=== PATIENT | female | born 1940 | race Caucasian/White ===

== ENCOUNTER → 2018-02-20 13:44 | Outpatient (CLI) | payer MEDICARE, SELFPAY ==
[2018-02-20 17:09] LABS: Absolute Neutrophil Count 3.3 X10^3/uL (2.0-7.7); Basophil# 0.03 X10^3/uL; Basophil% 0.6 % (0-1); Eosinophil# 0.09 X10^3/uL; Eosinophils% 1.8 % (0-5); Hematocrit 38.4 % (37-47); Hemoglobin 12.4 g/dl (12.0-15.0); Lymphocyte % 23.5 % (19-41); Mean Corp Hgb Conc 32.3 g/gl (32-36); Mean Corpuscular Hgb 28.6 pg (27.0-32.0); Mean Corpuscular Volume 88.7 fL (81-99); Mean Platelet Vol. 10.2 fl (6.2-12.0); Monocyte# 0.51 X10^3/uL; Neutrophil # 3.27 X10^3/uL (2.7-7.7); Neutrophil % 63.9 % (47-70); Platelet Count 235 K/mm3 (150-450); RBC Distribution Width SD 45.5 fl (35.1-43.9); Red Blood Count 4.33 M/mm3 (4.2-5.4); White Blood Count 5.1 K/mm3 (4.4-11.0)
[2018-02-20 17:25] LABS: ALB/GLOB Ratio 1.2 RATIO (0.9-2.4); AST(SGOT) 16 U/L (15-37); Alanine Aminotransfer ALT/SGPT 23 U/L (13-56); Albumin, Serum 3.7 g/dL (3.2-5.0); Alkaline Phosphatase 84 U/L (45-117); Anion Gap 4 (5-15); BUN 14 mg/dL (7-18); BUN/Creat Ratio 14.6 RATIO (10-20); Chloride 107 mmol/L (98-107); Creatinine, Serum 0.96 mg/dL (0.55-1.02); EST Glomerular Filtration Rate 60 mL/min (>60); Est Glom Filt Rate - Afr Amer 72 mL/min (>60); Globulin 3.2 g/dL (2.2-4.2); Glucose 75 mg/dL (74-106); Potassium 3.7 mmol/L (3.5-5.1); Protein, Total 6.9 g/dL (6.4-8.2); Sodium Level 140 mmol/L (136-145); Thyroid Stim Hormone (TSH) 1.62 uIU/mL (0.358-3.74)
[2018-02-20 17:26] LABS: POSITIVE COUNT NO; POSITIVE DIFFERENTIAL NO; POSITIVE MORPHOLOGY NO
[2018-02-21 08:39] LABS: Vitamin D,25 Hydroxy 22.4 ng/mL (29.95-100.01)
== END ==
PROVIDERS: Family Provider Family Medicine Geriatric Medicine; PCP Family Medicine Geriatric Medicine; Visit Provider Family Medicine Geriatric Medicine
DX: I10 Essential (primary) hypertension (principal); E55.9 Vitamin D deficiency, unspecified
CPT/HCPCS: 36415; 80053; 82306; 84443; 85025

== ENCOUNTER → 2018-08-15 09:39 | Outpatient (CLI) | payer MEDICARE, SELFPAY ==
[2018-08-15 12:33] LABS: Absolute Lymphocyte Count 1.23 X10^3/ul (0.83-4.51); Absolute Neutrophil Count 3.1 X10^3/uL (2.0-7.7); Basophil# 0.05 X10^3/uL; Eosinophil# 0.11 X10^3/uL; Eosinophils% 2.2 % (0-5); Hematocrit 40.7 % (37-47); Hemoglobin 13.1 g/dl (12.0-15.0); Lymphocyte # 1.23 X10^3/ul (4.0); Lymphocyte % 24.1 % (19-41); Mean Corp Hgb Conc 32.2 g/gl (32-36); Mean Corpuscular Hgb 28.7 pg (27.0-32.0); Mean Corpuscular Volume 89.3 fL (81-99); Mean Platelet Vol. 10.1 fl (6.2-12.0); Monocyte# 0.62 X10^3/uL; Monocyte% 12.1 % (0-10); Neutrophil # 3.09 X10^3/uL (2.7-7.7); Neutrophil % 60.4 % (47-70); Platelet Count 251 K/mm3 (150-450); RBC Distribution Width CV 13.9 % (11.6-14.6); RBC Distribution Width SD 45.5 fl (35.1-43.9); Red Blood Count 4.56 M/mm3 (4.2-5.4); White Blood Count 5.1 K/mm3 (4.4-11.0)
[2018-08-15 12:41] LABS: POSITIVE COUNT NO; POSITIVE DIFFERENTIAL NO; POSITIVE MORPHOLOGY NO
[2018-08-15 12:56] LABS: ALB/GLOB Ratio 1.1 RATIO (0.9-2.4); AST(SGOT) 14 U/L (15-37); Alanine Aminotransfer ALT/SGPT 19 U/L (13-56); Albumin, Serum 3.8 g/dL (3.2-5.0); Alkaline Phosphatase 94 U/L (45-117); Anion Gap 9 (5-15); BUN 17 mg/dL (7-18); BUN/Creat Ratio 16.7 RATIO (10-20); Calcium,Total 8.9 mg/dL (8.5-10.1); Chloride 105 mmol/L (98-107); Creatinine, Serum 1.02 mg/dL (0.55-1.02); EST Glomerular Filtration Rate 55 mL/min (>60); Est Glom Filt Rate - Afr Amer 67 mL/min (>60); Globulin 3.4 g/dL (2.2-4.2); Glucose 95 mg/dL (74-106); Potassium 4.5 mmol/L (3.5-5.1); Protein, Total 7.2 g/dL (6.4-8.2); Sodium Level 139 mmol/L (136-145); Thyroid Stim Hormone (TSH) 2.13 uIU/mL (0.358-3.74)
== END ==
PROVIDERS: Family Provider Family Medicine Geriatric Medicine; PCP Family Medicine Geriatric Medicine; Visit Provider Family Medicine Geriatric Medicine
DX: I10 Essential (primary) hypertension (principal); E55.9 Vitamin D deficiency, unspecified
CPT/HCPCS: 36415; 80053; 82306; 84443; 85025

== ENCOUNTER → 2019-02-11 08:53 | Outpatient (CLI) | payer MEDICARE, SELFPAY ==
[2019-02-11 12:33] LABS: Absolute Lymphocyte Count 1.27 X10^3/ul (0.83-4.51); Absolute Neutrophil Count 4.1 X10^3/uL (2.0-7.7); Basophil# 0.04 X10^3/uL; Basophil% 0.7 % (0-1); Eosinophils% 1.6 % (0-5); Hematocrit 40.4 % (37-47); Hemoglobin 13.4 g/dl (12.0-15.0); Lymphocyte # 1.27 X10^3/ul (4.0); Lymphocyte % 20.8 % (19-41); Mean Corp Hgb Conc 33.2 g/gl (32-36); Mean Corpuscular Hgb 28.9 pg (27.0-32.0); Mean Corpuscular Volume 87.3 fL (81-99); Mean Platelet Vol. 10.4 fl (6.2-12.0); Monocyte# 0.58 X10^3/uL; Monocyte% 9.5 % (0-10); Neutrophil % 67.1 % (47-70); Platelet Count 272 K/mm3 (150-450); RBC Distribution Width CV 14.2 % (11.6-14.6); RBC Distribution Width SD 44.6 fl (35.1-43.9); Red Blood Count 4.63 M/mm3 (4.2-5.4); White Blood Count 6.1 K/mm3 (4.4-11.0)
[2019-02-11 12:47] LABS: POSITIVE COUNT NO; POSITIVE DIFFERENTIAL NO; POSITIVE MORPHOLOGY NO
[2019-02-11 12:58] LABS: Vitamin D,25 Hydroxy 21.6 ng/mL (29.95-100.01)
[2019-02-11 13:06] LABS: ALB/GLOB Ratio 1.2 RATIO (0.9-2.4); AST(SGOT) 13 U/L (15-37); Alanine Aminotransfer ALT/SGPT 23 U/L (13-56); Alkaline Phosphatase 71 U/L (45-117); Anion Gap 12 (5-15); BUN 18 mg/dL (7-18); Chloride 104 mmol/L (98-107); EST Glomerular Filtration Rate 57 mL/min (>60); Est Glom Filt Rate - Afr Amer 68 mL/min (>60); Globulin 3.3 g/dL (2.2-4.2); Glucose 95 mg/dL (74-106); Potassium 4.1 mmol/L (3.5-5.1); Protein, Total 7.3 g/dL (6.4-8.2); Sodium Level 140 mmol/L (136-145); Thyroid Stim Hormone (TSH) 2.47 uIU/mL (0.358-3.74)
== END ==
PROVIDERS: Family Provider Family Medicine Geriatric Medicine; PCP Family Medicine Geriatric Medicine; Visit Provider Family Medicine Geriatric Medicine
DX: I10 Essential (primary) hypertension (principal); E55.9 Vitamin D deficiency, unspecified
CPT/HCPCS: 36415; 80053; 82306; 84443; 85025

== ENCOUNTER → 2019-08-16 08:34 | Outpatient (CLI) | payer MEDICARE, SELFPAY ==
[2019-08-16 11:44] LABS: Absolute Neutrophil Count 4.1 X10^3/uL (2.0-7.7); Basophil# 0.04 X10^3/uL; Basophil% 0.7 % (0-1); Eosinophil# 0.08 X10^3/uL; Eosinophils% 1.4 % (0-5); Hematocrit 40.9 % (37-47); Hemoglobin 13.1 g/dL (12.0-15.0); Lymphocyte % 14.1 % (19-41); Mean Corpuscular Hgb 29.3 pg (27.0-32.0); Mean Corpuscular Volume 91.5 fL (81-99); Mean Platelet Vol. 10.3 fl (6.2-12.0); Monocyte# 0.63 X10^3/uL; Monocyte% 11.1 % (0-10); NRBC Flagged by Analyzer 0 % (0-5); Neutrophil % 72.2 % (47-70); Platelet Count 257 K/mm3 (150-450); RBC Distribution Width CV 13.9 % (11.6-14.6); RBC Distribution Width SD 46.8 fl (35.1-43.9); Red Blood Count 4.47 M/mm3 (4.2-5.4); White Blood Count 5.7 K/mm3 (4.4-11.0)
[2019-08-16 12:00] LABS: Vitamin D,25 Hydroxy 16.4 ng/mL (29.95-100.01)
[2019-08-16 12:10] LABS: ALB/GLOB Ratio 1.1 RATIO (0.9-2.4); AST(SGOT) 12 U/L (15-37); Alanine Aminotransfer ALT/SGPT 20 U/L (13-56); Albumin, Serum 3.8 g/dL (3.2-5.0); Alkaline Phosphatase 99 U/L (45-117); Anion Gap 7 (5-15); BUN 15 mg/dL (7-18); BUN/Creat Ratio 14.4 RATIO (10-20); Calcium,Total 9.4 mg/dL (8.5-10.1); Chloride 107 mmol/L (98-107); Creatinine, Serum 1.04 mg/dL (0.55-1.02); EST Glomerular Filtration Rate 54 mL/min (>60); Est Glom Filt Rate - Afr Amer 65 mL/min (>60); Globulin 3.4 g/dL (2.2-4.2); Glucose 89 mg/dL (74-106); Potassium 4.2 mmol/L (3.5-5.1); Protein, Total 7.2 g/dL (6.4-8.2); Sodium Level 139 mmol/L (136-145); Thyroid Stim Hormone (TSH) 2.57 uIU/mL (0.358-3.74)
== END ==
PROVIDERS: Family Provider Family Medicine Geriatric Medicine; PCP Family Medicine Geriatric Medicine; Visit Provider Family Medicine Geriatric Medicine
DX: I10 Essential (primary) hypertension (principal); E55.9 Vitamin D deficiency, unspecified
CPT/HCPCS: 36415; 80053; 82306; 84443; 85025

== ENCOUNTER → 2020-02-14 09:35 | Outpatient (CLI) | payer MEDICARE, SELFPAY ==
[2020-02-14 11:04] LABS: Absolute Lymphocyte Count 1.02 X10^3/uL (0.83-4.51); Absolute Neutrophil Count 3.2 X10^3/uL (2.0-7.7); Basophil# 0.05 X10^3/uL; Eosinophil# 0.16 X10^3/uL; Eosinophils% 3.2 % (0-5); Hematocrit 40.1 % (37-47); Hemoglobin 12.6 g/dL (12.0-15.0); Lymphocyte # 1.02 X10^3/ul (4.0); Lymphocyte % 20.3 % (19-41); Mean Corp Hgb Conc 31.4 g/dL (32-36); Mean Corpuscular Hgb 28.3 pg (27.0-32.0); Mean Corpuscular Volume 90.1 fL (81-99); Mean Platelet Vol. 10.2 fl (6.2-12.0); Monocyte# 0.56 X10^3/uL; Monocyte% 11.2 % (0-10); NRBC Flagged by Analyzer 0 % (0-5); Neutrophil % 63.7 % (47-70); Platelet Count 290 K/mm3 (150-450); RBC Distribution Width CV 13.9 % (11.6-14.6); RBC Distribution Width SD 45.9 fl (35.1-43.9); Red Blood Count 4.45 M/mm3 (4.2-5.4)
[2020-02-14 11:18] LABS: Vitamin D,25 Hydroxy 21.5 ng/mL
[2020-02-14 11:29] LABS: ALB/GLOB Ratio 1.1 RATIO (0.9-2.4); AST(SGOT) 12 U/L (15-37); Alanine Aminotransfer ALT/SGPT 19 U/L (13-56); Albumin, Serum 3.8 g/dL (3.2-5.0); Alkaline Phosphatase 89 U/L (45-117); Anion Gap 5 (5-15); BUN 24 mg/dL (7-18); BUN/Creat Ratio 21.6 RATIO (10-20); Calcium,Total 9.6 mg/dL (8.5-10.1); Chloride 106 mmol/L (98-107); Creatinine, Serum 1.11 mg/dL (0.55-1.02); EST Glomerular Filtration Rate 50 mL/min (>60); Est Glom Filt Rate - Afr Amer 61 mL/min (>60); Globulin 3.4 g/dL (2.2-4.2); Glucose 92 mg/dL (74-106); Potassium 4.6 mmol/L (3.5-5.1); Protein, Total 7.2 g/dL (6.4-8.2); Sodium Level 138 mmol/L (136-145); Thyroid Stim Hormone (TSH) 2.27 uIU/mL (0.358-3.74)
== END ==
PROVIDERS: PCP Family Medicine Geriatric Medicine; Visit Provider Family Medicine Geriatric Medicine
DX: I10 Essential (primary) hypertension (principal); E55.9 Vitamin D deficiency, unspecified
CPT/HCPCS: 36415; 80053; 82306; 84443; 85025

== ENCOUNTER → 2020-08-17 09:50 | Outpatient (CLI) | payer MEDICARE, SELFPAY ==
[2020-08-17 11:31] LABS: Absolute Lymphocyte Count 1.28 X10^3/uL (0.83-4.51); Absolute Neutrophil Count 3.2 X10^3/uL (2.0-7.7); Basophil# 0.05 X10^3/uL; Eosinophils% 1.9 % (0-5); Hematocrit 39.1 % (37-47); Hemoglobin 12.6 g/dL (12.0-15.0); Lymphocyte # 1.28 X10^3/ul (4.0); Lymphocyte % 24.4 % (19-41); Mean Corp Hgb Conc 32.2 g/dL (32-36); Mean Corpuscular Hgb 28.8 pg (27.0-32.0); Mean Corpuscular Volume 89.5 fL (81-99); Mean Platelet Vol. 10.4 fl (6.2-12.0); Monocyte# 0.64 X10^3/uL; Monocyte% 12.2 % (0-10); NRBC Flagged by Analyzer 0 % (0-5); Neutrophil # 3.15 X10^3/uL (2.7-7.7); Neutrophil % 59.9 % (47-70); Platelet Count 275 K/mm3 (150-450); RBC Distribution Width CV 13.7 % (11.6-14.6); RBC Distribution Width SD 44.9 fl (35.1-43.9); Red Blood Count 4.37 M/mm3 (4.2-5.4); White Blood Count 5.3 K/mm3 (4.4-11.0)
[2020-08-17 11:47] LABS: Vitamin D,25 Hydroxy 21.4 ng/mL
[2020-08-17 12:00] LABS: AST(SGOT) 7 U/L (15-37); Alanine Aminotransfer ALT/SGPT 16 U/L (13-56); Albumin, Serum 3.6 g/dL (3.2-5.0); Alkaline Phosphatase 94 U/L (45-117); Anion Gap 5 (5-15); BUN 22 mg/dL (7-18); BUN/Creat Ratio 22.1 RATIO (10-20); Calcium,Total 9.8 mg/dL (8.5-10.1); Chloride 106 mmol/L (98-107); EST Glomerular Filtration Rate 57 mL/min (>60); Est Glom Filt Rate - Afr Amer 69 mL/min (>60); Globulin 3.7 g/dL (2.2-4.2); Glucose 95 mg/dL (74-106); Potassium 4.5 mmol/L (3.5-5.1); Protein, Total 7.3 g/dL (6.4-8.2); Sodium Level 138 mmol/L (136-145); Thyroid Stim Hormone (TSH) 3.23 uIU/mL (0.358-3.74)
== END ==
PROVIDERS: PCP Family Medicine Geriatric Medicine; Visit Provider Family Medicine Geriatric Medicine
DX: I10 Essential (primary) hypertension (principal); E55.9 Vitamin D deficiency, unspecified
CPT/HCPCS: 36415; 80053; 82306; 84443; 85025

== ENCOUNTER → 2021-02-22 11:29 | Outpatient (CLI) | payer MEDICARE, SELFPAY ==
[2021-02-22 12:00] LABS: Absolute Lymphocyte Count 1.15 X10^3/uL (0.83-4.51); Absolute Neutrophil Count 3.5 X10^3/uL (2.0-7.7); Basophil# 0.07 X10^3/uL; Basophil% 1.3 % (0-1); Eosinophil# 0.09 X10^3/uL; Eosinophils% 1.7 % (0-5); Hematocrit 38.9 % (37-47); Hemoglobin 12.5 g/dL (12.0-15.0); Lymphocyte # 1.15 X10^3/ul (0.83-4.51); Lymphocyte % 21.5 % (19-41); Mean Corp Hgb Conc 32.1 g/dL (32-36); Mean Corpuscular Hgb 28.3 pg (27.0-32.0); Mean Platelet Vol. 10.1 fl (6.2-12.0); Monocyte# 0.55 X10^3/uL; Monocyte% 10.3 % (0-10); NRBC Flagged by Analyzer 0 % (0-5); Neutrophil # 3.46 X10^3/uL (2.7-7.7); Neutrophil % 64.8 % (47-70); Platelet Count 276 K/mm3 (150-450); RBC Distribution Width CV 14.2 % (11.6-14.6); RBC Distribution Width SD 45.3 fl (35.1-43.9); Red Blood Count 4.42 M/mm3 (4.2-5.4); White Blood Count 5.3 K/mm3 (4.4-11.0)
[2021-02-22 12:36] LABS: Vitamin D,25 Hydroxy 35.4 ng/mL
[2021-02-22 12:56] LABS: ALB/GLOB Ratio 1.2 RATIO (0.9-2.4); AST(SGOT) 12 U/L (15-37); Alanine Aminotransfer ALT/SGPT 15 U/L (13-56); Albumin, Serum 3.8 g/dL (3.2-5.0); Alkaline Phosphatase 95 U/L (45-117); Anion Gap 8 (5-15); BUN 20 mg/dL (7-18); BUN/Creat Ratio 20.2 RATIO (10-20); Calcium,Total 9.3 mg/dL (8.5-10.1); Chloride 106 mmol/L (98-107); Creatinine, Serum 0.99 mg/dL (0.55-1.02); EST Glomerular Filtration Rate 57 mL/min (>60); Est Glom Filt Rate - Afr Amer 69 mL/min (>60); Globulin 3.2 g/dL (2.2-4.2); Glucose 116 mg/dL (74-106); Potassium 4.1 mmol/L (3.5-5.1); Sodium Level 139 mmol/L (136-145); Thyroid Stim Hormone (TSH) 2.17 uIU/mL (0.358-3.74)
== END ==
PROVIDERS: PCP Family Medicine Geriatric Medicine; Visit Provider Family Medicine Geriatric Medicine
DX: I10 Essential (primary) hypertension (principal); E55.9 Vitamin D deficiency, unspecified
CPT/HCPCS: 36415; 80053; 82306; 84443; 85025

== ENCOUNTER 2021-06-25 13:38 | Emergency (ER) | payer MEDICARE, SELFPAY ==
[2021-06-25 13:40] VITALS: BP 154/74; PULSE 81; RESP 24; TEMP 36.8; O2SAT 97; BMI 23.8
--- NOTE | 2021-06-25 15:05 | ED.VIS.GI ---
HPI HPI - GI History of Present Illness Chief Complaint: Abd Pain Narrative Narrative: 81-year-old female presenting with left lower quadrant abdominal pain. Patient states that this started about 3 days ago but is gradually built over the course of that time. but states she does not have jose eduardo dysuria. She denies Patient admits to some urinary dribbling hematuria. this morning. Patient also complains of diarrhea She does not have nausea or vomiting. She was able to eat breakfast today. Patient's past surgical history in her abdomen includes a hernia repair several years ago by Dr. Wilcox. Patient denies having a fever. Patient has no history of kidney stones or diverticulitis. [facility] PFS Medical History History of bleeding ulcers HTN (hypertension) Hypothyroid Home Medications levothyroxine [Euthyrox] 25 mcg PO QHS 06/25/21 [History Last Taken Unknown] lisinopril 40 mg PO DAILY 06/25/21 [History Last Taken Unknown] sulfamethoxazole-trimethoprim [Bactrim DS] 1 tab PO Q12H #20 tab 06/25/21 [Rx Last Taken Unknown] Allergy/AdvReac Type Severity Reaction Status Date / Time No Known Allergies Allergy Verified 06/25/21 13:40 Surgical History History of hernia repair Social History Smoking Status: Never smoker ROS ROS ED Constitutional Constitutional ED: Denies chills or fever(s) ENT ENT ED: Denies rhinorrhea or sore throat Cardiovascular Cardiovascular: Denies chest pain or palpitations Respiratory/Chest Respiratory/Chest: Denies cough, dyspnea or sputum Gastrointestinal Gastrointestinal: Reports abdominal pain and diarrhea Genitourinary Genitourinary ED: Reports other Details: Urinary dribbling ; Denies dysuria or hematuria Musculoskeletal Musculoskeletal: Denies arthralgias or myalgias Integumentary Denies rash Neurologic Neurologic: Denies headache(s), paresthesias or weakness EXAM Physical Exam Const Vital Signs: 06/25/21 13:40 06/25/21 17:00 Temperature 98.2 F Temperature Source Temporal Pulse Rate 81 80 Respiratory Rate 24 H 16 Blood Pressure 154/74 H 152/74 H Blood Pressure Mean 100 100 Pulse Ox 97 97 Oxygen Delivery Method Room Air Room Air Positive well nourished General Appearance ED: NAD; Negative for pallor HEENT Reports moist mucous membranes normocephalic and atraumatic Eyes PERRL and EOMs intact bilaterally General Eye ED: Negative for pale conjunctiva or scleral icterus Resp normal respiratory effort and clear to auscultation bilaterally Cardio regular rate and regular rhythm GI Palpation: soft and tender LLQ Back/Spine General Back: CVA tenderness left Neuro Sensorium / Orientation: alert, oriented to person, oriented to place and oriented to time Skin General Skin Exam: Negative for jaundice or pallor MDM MDM MDM Narrative Medical decision making narrative: Patient presented with left CVA tenderness and left lower quadrant abdominal pain. She had no history of kidney stones. She does admit to dribbling of urine but denies dysuria. She has not had any systemic signs or symptoms. He is given morphine and Zofran on arrival. I did obtain a urinalysis which is positive for infection. Culture was sent. CBC and CMP are unremarkable. Patient's pain is now controlled. I will start her on antibiotics for pyelonephritis given the CVA tenderness although the CT the abdomen pelvis shows no perinephric stranding. Patient is given return precautions. Impression: 1. Left pyelonephritis Lab Data Attestation: I reviewed the patient's lab results. Labs: Laboratory Results - last 24 hr 06/25/21 06/25/21 06/25/21 14:20 14:20 16:15 WBC 5.4 RBC 4.53 Hgb 12.9 Hct 37.9 MCV 83.7 MCH 28.5 MCHC 34.0 RDW Std Deviation 40.6 RDW Coeff of Maria D 13.2 Plt Count 312 MPV 9.9 Immature Gran % (Auto) 0.700 Neut % (Auto) 72.6 H Lymph % (Auto) 17.3 L [place] % (Auto) 8.3 Eos % (Auto) 0.2 Baso % (Auto) 0.9 Absolute Neuts (auto) 3.9 Absolute Lymphs (auto) 0.94 Nucleated RBC % 0 Sodium 133 L Potassium 4.2 Chloride 103 Carbon Dioxide 21.0 Anion Gap 9 BUN 18 Creatinine 0.95 Estim Creat Clear Calc 40.38 Est GFR (MDRD) Af Amer 72 Est GFR (MDRD) Non-Af 59 L BUN/Creatinine Ratio 18.9 Glucose 121 H Calcium 9.8 Total Bilirubin 1.20 H AST 14 L ALT 14 Alkaline Phosphatase 103 Total Protein 7.2 Albumin 3.8 Globulin 3.4 Albumin/Globulin Ratio 1.1 Lipase 111 Urine Color Yellow Urine Clarity Clear Urine pH 8.0 Ur Specific [place] 1.010 Urine Protein Negative Urine Glucose (UA) Normal Urine Ketones 50 H Urine Occult Blood 10 H Urine Nitrite Positive H Urine Bilirubin Negative Urine Urobilinogen Normal Ur Leukocyte Esterase 25 H Urine RBC 0-5 SEEN Urine WBC 0-5 SEEN Ur Squamous Epith Cells 0 SEEN Urine Bacteria 2+ Urine Mucus 0 SEEN Radiography Diagnostic Testing: Clinical Impression(s) from Imaging Studies Abdomen/Pelvis CT 06/25/21 16:52 IMPRESSION: 1. No acute abnormality. 2. Chronic compression fractures of T10 and L1. 3. 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 Electronically Signed: Tk Simpson MD at 17:36 EDT Tel , Service support , Discharge Plan Triage Chief Complaint: Abd Pain Other Complaint: Complaint ED Provider: Kareem Wiley Dx/Rx/DC Orders Instructions: ED Pyelonephritis, Female (Adult) Prescriptions: New sulfamethoxazole-trimethoprim [Bactrim DS] 800-160 mg tablet 1 tab PO Q12H Qty: 20 RF: 0 No Action levothyroxine [Euthyrox] 25 mcg tablet 25 mcg PO QHS RF: 0 lisinopril 40 mg tablet 40 mg PO DAILY RF: 0 Primary Care Provider: Darryl Coleman Chi Referrals: Darryl Coleman Chi, MD [Primary Care Provider] - Disposition Disposition: Home, Self Care
[2021-06-25] MEDS: 0.9% Normal Saline 1,000 ML 999 ML IV (15:14)
[2021-06-25] MEDS: Morphine 4 MG/ML Syringe IV (15:15)
[2021-06-25] MEDS: Ondansetron 4 MG/2 ML Vial IV (15:15)
[2021-06-25 15:26] LABS: ALB/GLOB Ratio 1.1 RATIO (0.9-2.4); AST(SGOT) 14 U/L (15-37); Alanine Aminotransfer ALT/SGPT 14 U/L (13-56); Albumin, Serum 3.8 g/dL (3.2-5.0); Alkaline Phosphatase 103 U/L (45-117); Anion Gap 9 (5-15); BUN 18 mg/dL (7-18); BUN/Creat Ratio 18.9 RATIO (10-20); Calcium,Total 9.8 mg/dL (8.5-10.1); Chloride 103 mmol/L (98-107); Creatinine, Serum 0.95 mg/dL (0.55-1.02); EST Glomerular Filtration Rate 59 mL/min (>60); Est Glom Filt Rate - Afr Amer 72 mL/min (>60); Estimated Creatinine Clearance 40.38 ml/min; Globulin 3.4 g/dL (2.2-4.2); Glucose 121 mg/dL (74-106); Lipase 111 U/L (73-393); Potassium 4.2 mmol/L (3.5-5.1); Protein, Total 7.2 g/dL (6.4-8.2); Sodium Level 133 mmol/L (136-145)
[2021-06-25 15:34] LABS: Absolute Lymphocyte Count 0.94 X10^3/uL (0.83-4.51); Absolute Neutrophil Count 3.9 X10^3/uL (2.0-7.7); Basophil# 0.05 X10^3/uL; Basophil% 0.9 % (0-1); Eosinophil# 0.01 X10^3/uL; Eosinophils% 0.2 % (0-5); Hematocrit 37.9 % (37-47); Hemoglobin 12.9 g/dL (12.0-15.0); Lymphocyte # 0.94 X10^3/ul (0.83-4.51); Lymphocyte % 17.3 % (19-41); Mean Corpuscular Hgb 28.5 pg (27.0-32.0); Mean Corpuscular Volume 83.7 fL (81-99); Mean Platelet Vol. 9.9 fl (6.2-12.0); Monocyte# 0.45 X10^3/uL; Monocyte% 8.3 % (0-10); NRBC Flagged by Analyzer 0 % (0-5); Neutrophil # 3.93 X10^3/uL (2.7-7.7); Neutrophil % 72.6 % (47-70); Platelet Count 312 K/mm3 (150-450); RBC Distribution Width CV 13.2 % (11.6-14.6); RBC Distribution Width SD 40.6 fl (35.1-43.9); Red Blood Count 4.53 M/mm3 (4.2-5.4); White Blood Count 5.4 K/mm3 (4.4-11.0)
[2021-06-25 16:22] LABS: Mucous, Urine 0 SEEN /hpf (<or=2+); Squamous Epithelial Cells - UA 0 SEEN /hpf (5-10)
[2021-06-25 16:26] LABS: Color, Urine Yellow (Yellow); Glucose, Dipstick Normal (Normal); Ketone-Dipstick 50 mg/dl (Negative); Leukocyte Esterase-Dipstick 25 /ul (Negative); Nitrite-Dipstick Positive (Negative); Occult Blood-Urine 10 /ul (Negative); Protein-Dipstick Negative (Negative); Urine Bilirubin Dipstick Negative (Negative); Urine Clarity Clear (Clear); Urine Urobilinogen Normal (Normal)
[2021-06-25 16:46] LABS: Bacteria 2+ /hpf (None Seen); Red Blood Cells-Urine 0-5 SEEN /hpf (0-5); White Blood Cells 0-5 SEEN /hpf (0-5)
--- NOTE | 2021-06-25 16:52 | CT_ITS ---
STUDY: CT ABDOMEN AND PELVIS WITHOUT CONTRAST REASON FOR EXAM: Female, 81 years old. Left flank pain RADIATION DOSAGE (If Supplied By Facility): CTDIvol = ( 6.37 ) mGy, DLP = ( 286.47 ) mGycm TECHNIQUE: Transaxial images were obtained from the dome of the diaphragm to the symphysis pubis without oral contrast, and without intravenous contrast. Sagittal and coronal images were reconstructed. Individualized dose optimization techniques were used for this CT. COMPARISON: 29 April 2013 FINDINGS: Lung bases are emphysematous with mild atelectasis. There is a moderate-sized hiatal hernia. Normal liver. Normal gallbladder and extrahepatic biliary system. Normal spleen. Normal pancreas. Normal bilateral adrenal glands. Normal right kidney. Normal left kidney. There are no urinary calculi or hydronephrosis. There is no intestinal obstruction. There is sigmoid diverticulosis without diverticulitis. Appendix is not seen. Normal abdominal aorta. Normal inferior vena cava. Normal retroperitoneum. Normal urinary bladder. Uterus is removed. Normal abdominal wall. There is left lower quadrant hernia repair without recurrence. Inguinal canals are closed. There is chronic compression fracture of L1 with anterior wedging deformity and mild posterior superior cortical retropulsion. There is chronic compression fracture of T10 with anterior wedging deformity without cortical retropulsion. Thecal sac is moderately to severely stenotic at L3-L4 due to discogenic spondylosis. Thecal sac is patent at other levels. CT/Abdomen/Pelvis without Cont IMPRESSION: 1. No acute abnormality. 2. Chronic compression fractures of T10 and L1. 3. 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 Electronically Signed: Tk Simpson MD at 17:36 EDT Tel , Service support ,
[2021-06-25 17:00] VITALS: BP 152/74; PULSE 80; RESP 16; O2SAT 97
[2021-06-25] MEDS: Smz/Tmp Ds Tablet 1 TABLET PO (18:00)
[2021-06-25 18:04] VITALS: PULSE 76; RESP 16; O2SAT 97
== END 2021-06-25 18:05 | disposition home or self-care (01) ==
PROVIDERS: Emergency Provider Student in an Organized Health Care Education/Training Program; PCP Family Medicine Geriatric Medicine
DX: N12 Tubulo-interstitial nephritis, not specified as acute or chronic (principal); R19.7 Diarrhea, unspecified; I10 Essential (primary) hypertension; E03.9 Hypothyroidism, unspecified; Z79.890 Hormone replacement therapy; Z79.899 Other long term (current) drug therapy
CPT/HCPCS: 74176; 80053; 81001; 83690; 85025; 87077; 87086; 87088; 87186; 96374; 96375; 99284; J7030; A4216; J2405

== ENCOUNTER → 2021-08-23 11:19 | Outpatient (CLI) | payer MEDICARE, SELFPAY ==
[2021-08-23 12:37] LABS: Absolute Lymphocyte Count 1.08 X10^3/uL (0.83-4.51); Absolute Neutrophil Count 3.2 X10^3/uL (2.0-7.7); Basophil# 0.07 X10^3/uL; Basophil% 1.4 % (0-1); Eosinophil# 0.09 X10^3/uL; Eosinophils% 1.8 % (0-5); Hematocrit 39.2 % (37-47); Hemoglobin 12.6 g/dL (12.0-15.0); Lymphocyte # 1.08 X10^3/ul (0.83-4.51); Lymphocyte % 21.9 % (19-41); Mean Corp Hgb Conc 32.1 g/dL (32-36); Mean Corpuscular Volume 90.1 fL (81-99); Mean Platelet Vol. 10.2 fl (6.2-12.0); Monocyte# 0.51 X10^3/uL; Monocyte% 10.3 % (0-10); NRBC Flagged by Analyzer 0 % (0-5); Neutrophil # 3.17 X10^3/uL (2.7-7.7); Neutrophil % 64.2 % (47-70); Platelet Count 275 K/mm3 (150-450); RBC Distribution Width CV 14.4 % (11.6-14.6); RBC Distribution Width SD 47.8 fl (35.1-43.9); Red Blood Count 4.35 M/mm3 (4.2-5.4); White Blood Count 4.9 K/mm3 (4.4-11.0)
[2021-08-23 12:54] LABS: Vitamin D,25 Hydroxy 27.3 ng/mL
[2021-08-23 12:59] LABS: ALB/GLOB Ratio 1.1 RATIO (0.9-2.4); AST(SGOT) 11 U/L (15-37); Alanine Aminotransfer ALT/SGPT 19 U/L (13-56); Albumin, Serum 3.7 g/dL (3.2-5.0); Alkaline Phosphatase 88 U/L (45-117); Anion Gap 6 (5-15); BUN 18 mg/dL (7-18); Calcium,Total 9.6 mg/dL (8.5-10.1); Chloride 108 mmol/L (98-107); EST Glomerular Filtration Rate 63 mL/min (>60); Est Glom Filt Rate - Afr Amer 77 mL/min (>60); Globulin 3.4 g/dL (2.2-4.2); Glucose 102 mg/dL (74-106); Potassium 4.2 mmol/L (3.5-5.1); Protein, Total 7.1 g/dL (6.4-8.2); Sodium Level 139 mmol/L (136-145); Thyroid Stim Hormone (TSH) 2.63 uIU/mL (0.358-3.74)
== END ==
PROVIDERS: PCP Family Medicine Geriatric Medicine; Visit Provider Family Medicine Geriatric Medicine
DX: I10 Essential (primary) hypertension (principal); E55.9 Vitamin D deficiency, unspecified
CPT/HCPCS: 36415; 80053; 82306; 84443; 85025

== ENCOUNTER → 2022-02-21 | Outpatient (CLI) | payer MEDICARE, SELFPAY ==
[2022-02-21 12:43] LABS: Absolute Lymphocyte Count 1.09 X10^3/uL (0.83-4.51); Absolute Neutrophil Count 3.7 X10^3/uL (2.0-7.7); Basophil# 0.07 X10^3/uL; Basophil% 1.3 % (0-1); Eosinophil# 0.12 X10^3/uL; Eosinophils% 2.2 % (0-5); Hematocrit 38.4 % (37-47); Hemoglobin 12.4 g/dL (12.0-15.0); Lymphocyte # 1.09 X10^3/ul (0.83-4.51); Lymphocyte % 19.6 % (19-41); Mean Corp Hgb Conc 32.3 g/dL (32-36); Mean Corpuscular Volume 89.9 fL (81-99); Mean Platelet Vol. 10.1 fl (6.2-12.0); Monocyte# 0.57 X10^3/uL; Monocyte% 10.3 % (0-10); NRBC Flagged by Analyzer 0 % (0-5); Neutrophil # 3.67 X10^3/uL (2.7-7.7); Neutrophil % 66.1 % (47-70); Platelet Count 252 K/mm3 (150-450); RBC Distribution Width CV 13.9 % (11.6-14.6); RBC Distribution Width SD 45.9 fl (35.1-43.9); Red Blood Count 4.27 M/mm3 (4.2-5.4); White Blood Count 5.6 K/mm3 (4.4-11.0)
[2022-02-21 12:49] LABS: Vitamin D,25 Hydroxy 30.2 ng/mL
[2022-02-21 12:56] LABS: ALB/GLOB Ratio 1.1 RATIO (0.9-2.4); AST(SGOT) 11 U/L (15-37); Alanine Aminotransfer ALT/SGPT 17 U/L (13-56); Albumin, Serum 3.6 g/dL (3.2-5.0); Alkaline Phosphatase 84 U/L (45-117); Anion Gap 4 (5-15); BUN 20 mg/dL (7-18); BUN/Creat Ratio 19.2 RATIO (10-20); Calcium,Total 9.4 mg/dL (8.5-10.1); Chloride 107 mmol/L (98-107); Creatinine, Serum 1.04 mg/dL (0.55-1.02); EST Glomerular Filtration Rate 54 mL/min (>60); Est Glom Filt Rate - Afr Amer 65 mL/min (>60); Globulin 3.2 g/dL (2.2-4.2); Glucose 95 mg/dL (74-106); Potassium 4.3 mmol/L (3.5-5.1); Protein, Total 6.8 g/dL (6.4-8.2); Sodium Level 138 mmol/L (136-145); Thyroid Stim Hormone (TSH) 2.13 uIU/mL (0.358-3.74)
== END | disposition home or self-care (01) ==
LOC: POLAB3 10:34
PROVIDERS: PCP Family Medicine Geriatric Medicine; Visit Provider Family Medicine Geriatric Medicine
DX: I10 Essential (primary) hypertension (principal); E55.9 Vitamin D deficiency, unspecified
CPT/HCPCS: 36415; 80053; 82306; 84443; 85025

== ENCOUNTER → 2022-08-22 | Outpatient (CLI) | payer MEDICARE, SELFPAY ==
[2022-08-22 12:46] LABS: Absolute Lymphocyte Count 0.97 X10^3/uL (0.83-4.51); Absolute Neutrophil Count 3.8 X10^3/uL (2.0-7.7); Basophil# 0.07 X10^3/uL; Basophil% 1.3 % (0-1); Eosinophil# 0.07 X10^3/uL; Eosinophils% 1.3 % (0-5); Hematocrit 40.5 % (37-47); Hemoglobin 13.1 g/dL (12.0-15.0); Lymphocyte # 0.97 X10^3/ul (0.83-4.51); Lymphocyte % 17.8 % (19-41); Mean Corp Hgb Conc 32.3 g/dL (32-36); Mean Corpuscular Hgb 29.2 pg (27.0-32.0); Mean Corpuscular Volume 90.2 fL (81-99); Mean Platelet Vol. 10.5 fl (6.2-12.0); Monocyte# 0.52 X10^3/uL; Monocyte% 9.5 % (0-10); NRBC Flagged by Analyzer 0.4 % (0-5); Neutrophil % 69.7 % (47-70); Platelet Count 276 K/mm3 (150-450); RBC Distribution Width CV 13.8 % (11.6-14.6); Red Blood Count 4.49 M/mm3 (4.2-5.4); White Blood Count 5.5 K/mm3 (4.4-11.0)
[2022-08-22 13:00] LABS: Vitamin D,25 Hydroxy 32.8 ng/mL
[2022-08-22 13:37] LABS: ALB/GLOB Ratio 1.2 RATIO (0.9-2.4); AST(SGOT) 10 U/L (15-37); Alanine Aminotransfer ALT/SGPT 17 U/L (13-56); Albumin, Serum 3.8 g/dL (3.2-5.0); Alkaline Phosphatase 82 U/L (45-117); Anion Gap 8 (5-15); BUN 20 mg/dL (7-18); BUN/Creat Ratio 21.3 RATIO (10-20); Calcium,Total 9.6 mg/dL (8.5-10.1); Chloride 106 mmol/L (98-107); Creatinine, Serum 0.94 mg/dL (0.55-1.02); EST Glomerular Filtration Rate 60 mL/min (>60); Est Glom Filt Rate - Afr Amer 73 mL/min (>60); Globulin 3.2 g/dL (2.2-4.2); Glucose 96 mg/dL (74-106); Potassium 4.1 mmol/L (3.5-5.1); Sodium Level 138 mmol/L (136-145)
== END | disposition home or self-care (01) ==
PROVIDERS: PCP Family Medicine Geriatric Medicine; Visit Provider Family Medicine Geriatric Medicine
DX: E55.9 Vitamin D deficiency, unspecified (principal); I10 Essential (primary) hypertension
CPT/HCPCS: 36415; 80053; 82306; 84443; 85025

== ENCOUNTER → 2022-09-28 | Outpatient (CLI) | payer MEDICARE, SELFPAY ==
--- NOTE | 2022-09-28 15:39 | NEURO ---
NCS and/or EMG Patient Report Ordering Doctor: Darryl Coleman Chi DATE OF SERVICE: 09/28/22 Marilin presents for electrodiagnostic testing of the right upper limb. She reports numbness and weakness in the right hand, worse over the past 6 months. Electrodiagnostic findings: Right median motor nerve demonstrates prolonged distal latency with normal amplitude and borderline reduced conduction velocity. Normal right ulnar motor response. Absent right median sensory latency at the wrist and palm. Normal ulnar and radial sensory responses. On needle EMG, all muscles tested in the right upper limb showed no evidence of denervation with normal motor unit action potentials. Electrodiagnostic impression: This is an abnormal study in the right upper limb 1. Electrodiagnostic findings suggestive of right-sided median mononeuropathy. This consistent with a moderate right carpal tunnel syndrome.
== END | disposition home or self-care (01) ==
PROVIDERS: PCP Family Medicine Geriatric Medicine; Visit Provider Family Medicine Geriatric Medicine
DX: G56.01 Carpal tunnel syndrome, right upper limb (principal)
CPT/HCPCS: 95886; 95910

== ENCOUNTER → 2023-02-14 | Outpatient (CLI) | payer MEDICARE, SELFPAY ==
[2023-02-14 12:18] LABS: Absolute Neutrophil Count 3.5 X10^3/uL (2.0-7.7); Basophil# 0.08 X10^3/uL; Basophil% 1.5 % (0-1); Eosinophil# 0.08 X10^3/uL; Eosinophils% 1.5 % (0-5); Hematocrit 43.6 % (37-47); Hemoglobin 13.8 g/dL (12.0-15.0); Lymphocyte % 20.9 % (19-41); Mean Corp Hgb Conc 31.7 g/dL (32-36); Mean Corpuscular Hgb 28.8 pg (27.0-32.0); Mean Corpuscular Volume 90.8 fL (81-99); Mean Platelet Vol. 9.8 fl (6.2-12.0); Monocyte# 0.48 X10^3/uL; Monocyte% 9.1 % (0-10); NRBC Flagged by Analyzer 0 % (0-5); Neutrophil # 3.49 X10^3/uL (2.7-7.7); Neutrophil % 66.4 % (47-70); Platelet Count 268 K/mm3 (150-450); RBC Distribution Width CV 13.8 % (11.6-14.6); RBC Distribution Width SD 46.3 fl (35.1-43.9); White Blood Count 5.3 K/mm3 (4.4-11.0)
[2023-02-14 12:53] LABS: Vitamin D,25 Hydroxy 53.9 ng/mL
[2023-02-14 13:07] LABS: ALB/GLOB Ratio 1.2 RATIO (0.9-2.4); AST(SGOT) 8 U/L (15-37); Alanine Aminotransfer ALT/SGPT 14 U/L (13-56); Albumin, Serum 3.9 g/dL (3.2-5.0); Alkaline Phosphatase 94 U/L (45-117); Anion Gap 7 (5-15); BUN 14 mg/dL (7-18); BUN/Creat Ratio 17.3 RATIO (10-20); Calcium,Total 9.9 mg/dL (8.5-10.1); Chloride 106 mmol/L (98-107); Creatinine, Serum 0.81 mg/dL (0.55-1.02); EST Glomerular Filtration Rate 71 mL/min (>60); Est Glom Filt Rate - Afr Amer 86 mL/min (>60); Globulin 3.3 g/dL (2.2-4.2); Glucose 104 mg/dL (74-106); Potassium 4.3 mmol/L (3.5-5.1); Protein, Total 7.2 g/dL (6.4-8.2); Sodium Level 138 mmol/L (136-145); Thyroid Stim Hormone (TSH) 3.27 uIU/mL (0.358-3.74)
== END | disposition home or self-care (01) ==
LOC: LAB 11:32
PROVIDERS: PCP Family Medicine Geriatric Medicine; Referring Provider Family Medicine Geriatric Medicine; Visit Provider Family Medicine Geriatric Medicine
DX: I10 Essential (primary) hypertension (principal); E55.9 Vitamin D deficiency, unspecified
CPT/HCPCS: 36415; 80053; 82306; 84443; 85025

== ENCOUNTER 2023-03-08 08:09 | Day surgery (SDC) | payer MEDICARE, SELFPAY ==
[2023-03-08] VITALS (10 sets, daily range): BP systolic 107–160; BP diastolic 51–76; PULSE 42–68; RESP 16–18; TEMP 36.3–36.7; O2SAT 97–100; BMI 22.7
[2023-03-08] MEDS: Lactated Ringers 1,000 ML 15 ML IV (08:42)
--- NOTE | 2023-03-08 09:17 | HP.PCM_ITS ---
HPI - General HPI Narrative MARILIN OLIVIER, is a 83 F who presents for right ECTR. no changes to h and p. OK to proceed. RAB discussed, post op pain medications tylenol or nsaids. FU in office 2 days. Right wrist marked. MR#: [id number] Acct: [id number] Name: MARILIN OLIVIER Rep #: [id number] : 1940 Provider: Dr. Bismark Guerrero MD Age/Sex: 82/F Location: [facility] [place] Status: Signed Intake Vital Signs 06/25/2113:40 02/20/2309:24 Height 5 ft 5 in 5 ft 5 in Weight: 142 lb BMI 23.6 Intake Visit Reasons: RIGHT HAND Chief Complaint: Right hand Is patient in pain?: Yes (Right hand) Pain scale (1-10): 6 Allergies No Known Allergies Allergy (Verified 02/20/23 09:22) Medications levothyroxine 25 mcg tablet (Euthyrox) 25 mcg PO QHS 06/25/21 [History Confirmed 02/20/23] lisinopril 40 mg tablet 40 mg PO DAILY 06/25/21 [History Confirmed 02/20/23] multivitamin 1 tab PO DAILY 02/20/23 [History Confirmed 02/20/23] PFSH Medical History (Updated 02/20/23 @ 09:28 by Bismark Guerrero MD) History of bleeding ulcers HTN (hypertension) Hypothyroid Right carpal tunnel syndrome Surgical History History of hernia repair Social History Smoking Status: Never smoker HPI RIGHT HAND Details: Parts of this documentation were recorded by a scribe, this documentation accurately reflects the service provided and the decisions made by me, Dr. Bismark Guerrero MD 02/20/23 0920. MARILIN OLIVIER is a 82 year old F here today for right carpal tunnel syndrome. right side, worse over time, can't do knitting, or weeding, mostly the ring finger goes numb, rhd. for a year. no night splinting or nsaids. interested in surgery. no hx medical beyond thyroid and htn. no blood thinners, mi or stroke. Ortho Exam General General: Yes no acute distress Neurologic: Yes alert and Yes oriented x3 Psychologic: Yes reasonable and appropriate Right Wrist/Hand Skin/Wound: Yes CDI, No Swelling, No Ecchymosis and Yes nail intact Right Wrist: Yes Phalen's and Thenar Atrophy; No Tinel's, Tender to palpate triangular fibrocartilage complex, Distal radioulnar joint, CMC Grind or Hypothenar Atrophy Motor: EPL: 4, FDP-2: 4, 1st Dorsal Interosseous: 4 and APB: 4 Sensation: Radial: I, Ulnar: I and Median: I WRIST: pos compression test at wrist, neg tinel and comp at elbow. Left Wrist/Hand Skin/Wound: No Swelling and No Ecchymosis Supplemental Info [facility]monary Services/Neurology [address] [place] [address] MR#:? [id number] Acct: [id number] Name: MARILIN OLIVIER Rep #: [id number] :? 1940 ?82 From: Francesca Carrion MD Referring Dr: ? ? Status:? REG CLI Location:? PSN Date:? 09/28/22 Sex: F C NCS and/or EMG Patient Report Ordering Doctor: Darryl Coleman Chi DATE OF SERVICE: 09/28/22 Marilin presents for electrodiagnostic testing of the right upper limb.? She reports numbness and weakness in the right hand, worse over the past 6 months. Electrodiagnostic findings: Right median motor nerve demonstrates prolonged distal latency with normal amplitude and borderline reduced conduction velocity. ? Normal right ulnar motor response.? Absent right median sensory latency at the wrist and palm.? Normal ulnar and radial sensory responses.? On needle EMG, all muscles tested in the right upper limb showed no evidence of denervation with normal motor unit action potentials. Electrodiagnostic impression: This is an abnormal study in the right upper limb 1.? Electrodiagnostic findings suggestive of right-sided median mononeuropathy.? This consistent with a moderate right carpal tunnel syndrome. Coding Level of Care Code Off vis,new,level 3 Diagnoses Right carpal tunnel syndrome G56.01 Assessment and Plan Assessment and Plan (1) Right carpal tunnel syndrome: Status: Acute Plan: 82 F with right carpal tunnel syndrome. We discussed the diagnosis prognosis and different treatment options associated with carpal tunnel syndrome. Can try rest ice anti-inflammatories activity modification and nighttime splinting cortisone injections and endoscopic or open carpal tunnel release. Patient is not interested in nonoperative management and wishes to go ahead with surgery in the form of right endoscopic carpal tunnel release. They are otherwise healthy but we will get a clearance just given their age. Explained the recovery associated with this 2 weeks avoiding heavy lifting and gripping keeping the incision clean and dry. Patient understands no further questions or concerns. Pros and cons risks and benefits were discussed with the patient including but not limited to infection, pain, stiffness, bleeding, damage to surrounding structures, neurovascular injury, recurrence or retear, failure or wear of hardware or fixation, instability, fracture, deep vein thrombosis and pulmonary embolism, anesthetic risks, , patient dissatisfaction, need for further surgery and other risks. Patient understood and wished to proceed with surgery, and signed the informed consent documentation. [facility] Medical History (Updated 02/28/23 @ 13:19 by Hailey Bermudez) High cholesterol History of bleeding ulcers History of ulceration HTN (hypertension) Hx of bladder infections Hypothyroid Non-smoker Post-menopausal Right carpal tunnel syndrome Thyroid disease Wears dentures Wears glasses Home Medications levothyroxine 25 mcg tablet (Euthyrox) 25 mcg PO QHS 06/25/21 [History Last Taken Unknown] lisinopril 40 mg tablet 40 mg PO DAILY 06/25/21 [History Last Taken 03/08/23 08:34] multivitamin 1 tab PO DAILY 02/20/23 [History Last Taken Unknown] Allergy/AdvReac Type Severity Reaction Status Date / Time No Known Allergies Allergy Verified 03/08/23 08:34 Surgical History (Updated 02/28/23 @ 13:19 by Hailey Bermudez) History of hernia repair Social History Smoking Status: Never smoker Vital Signs Vital Signs Vital Signs: 03/08/23 08:35 03/08/23 08:35 Temperature 98.1 F Temperature Source Temporal Pulse Rate 68 Respiratory Rate 18 Respiratory Pattern Normal Blood Pressure 160/76 H Blood Pressure Mean 104 Blood Pressure Source Monitor Blood Pressure Position Sitting Blood Pressure Location Left Arm Pulse Ox 100 Oxygen Delivery Method Room Air Weight Weight: 136 lb 10.986 oz Body Mass Index (BMI) 22.7
[2023-03-08] MEDS: Cefazolin 2 GM in 0.9% Normal Saline 100 ML IV (09:43)
[2023-03-08] MEDS: Bupivacaine 0.25% 30 ML Vial (10:01)
--- NOTE | 2023-03-08 10:14 | OP.PCM_ITS ---
Problems Associated Problem List Diagnoses (1) Right carpal tunnel syndrome: Report of Operation Date of Procedure: 03/08/23 Pre-Operative Diagnosis: right carpal tunnel syndrome Post-Operative Diagnosis: same Surgery/Procedure Performed:: right endoscopic carpal tunnel release Surgeon: Bismark Guerrero Type of Anesthesia: IV Sedation and Local Anesthesiologist: Corky Mir Estimated Blood Loss (mL): 10 Description of Procedure: Patient was brought to the operating room theater.? The patient was administered 2g iv ancef prior to the start of the procedure.? Placed supine on the operating room table.? Anesthesia induced.? SCDs on the legs.? Tourniquet applied to the right upper operative extremity, appropriately padded. Arm table used. Operative extremity prepped and draped in the usual sterile fashion with chlorhexidine- based prep solution allowing over 3 minutes drying time prior to draping.? Preoperative timeout performed to confirm the site patient and the surgery. Limb limb elevated tourniquet inflated to 250 mmHg.? I used the [facility] endoscopic carpal tunnel kit / technique. Exsanguinated limb. 4cc 0.25% bupivicaine at incision site. ? I made a transverse 2 cm incision in line with the? transverse wrist crease.? This was in line with the fourth digit.? I carried the dissection down through skin and subcutaneous tissue achieved meticulous hemostasis. Just ulnar to palmaris tendon.? I incised the antebrachial fascia.? I passed sequential dilators into the carpal tunnel along the radial border of the Guyon's canal aiming for the fourth digit with the hand in extension.? I used a synovial elevator to identify the transverse fibers of the transverse carpal tunnel ligament.? Passed the scope into the carpal tunnel. Once I had identified the full proximal and distal extent of the ligament I fully released the ligament under direct visualization by deploying the blade and slowly withdrawing the scope made sequential passes until I no longer felt tension as well as the entire extent of the ligament was released under direct visualization.? Sounded the tunnel with harvey tenotomy scissors, complete release, no bands. Arthroscope light was more visible through the skin. Pictures taken and saved. Wound thoroughly irrigated.? Tourniquet let down prior to end of the case and meticulous hemostasis achieved.? Thorough irrigation.? ? Incisions closed with 3-0 Monocryl for the skin.? Steri-Strips were applied after the skin was cleaned and dried. adaptic 4x4 gauze and zo. Patient woken up,? transferred off the operating room table and taken to postanesthetic care unit in stable condition. All sponge needle instrument counts were correct no complications.? Plan for the patient to be discharged home according to day surgery criteria when they are comfortable. Follow-up in the office in 2 days time. Gentle ROM hand and elbow no heavy lifting. Complications none Admit VTE Documentation VTE Present on Admission: No VTE Mechan Device Prophylaxis: SCD's VTE Pharm Prophylaxis ordered?: No Reason prophylaxis not ordered:: Treatment Not Indicated Procedures Musculoskeletal [id number]: Other Procedure See Report
--- NOTE | 2023-03-08 10:16 | DCINST_ITS ---
Discharge Instructions Diet Discharge Diet: No restrictions Activity Keep extremity elevated above heart level: Operative Extremity Additional Activity Instructions:: ok for hand / wrist ROM, no heavy lifting or gripping Dressing / Incision Call your doctor if your incision/area has: Continuous Slow Oozing, Sudden Increased Bleeding, Increased Pain/ Swelling, Increased Redness, Foul Smelling Discharge and Swelling at the incision site Change Dressing in: leave in place till F/U Follow Up Care Please Follow Up With: Bismark Guerrero MD When: 2 days Test Results: Test results from this visit will be discussed in further detail at your follow- up appointment, if applicable. Discharge Plan Admission Attending Provider: Bismark Guerrero Primary Care Provider: Darryl Coleman Chi Discharge Orders/Prescriptions Prescriptions: No Action multivitamin Tablet 1 tab PO DAILY levothyroxine [Euthyrox] 25 mcg tablet 25 mcg PO QHS lisinopril 40 mg tablet 40 mg PO DAILY Referrals / Follow Up: Darryl Coleman Chi, MD [Primary Care Provider] - Bismark Guerrero MD [Med Staff - Active Staff] - Disposition Disposition (needs filled in before D/C Order can be placed): Home, Self Care
== END 2023-03-08 11:39 | disposition home or self-care (01) ==
LOC: SDC 08:11 → AC 08:12
PROVIDERS: PCP Family Medicine Geriatric Medicine; Referring Provider Orthopaedic Surgery Sports Medicine; Visit Provider Orthopaedic Surgery Sports Medicine
PROC: (CPT 29848; principal; 2023-03-08 09:50)
DX: G56.01 Carpal tunnel syndrome, right upper limb (principal); I10 Essential (primary) hypertension; E03.9 Hypothyroidism, unspecified; Z79.899 Other long term (current) drug therapy
CPT/HCPCS: 29848; 01810; J7120; J2405

== ENCOUNTER → 2023-08-29 | Outpatient (CLI) | payer MEDICARE, SELFPAY ==
[2023-08-29 11:33] LABS: Absolute Lymphocyte Count 0.97 X10^3/uL (0.83-4.51); Absolute Neutrophil Count 3.4 X10^3/uL (2.0-7.7); Basophil# 0.08 X10^3/uL; Basophil% 1.5 % (0-1); Eosinophils% 1.9 % (0-5); Hematocrit 38.5 % (37-47); Hemoglobin 12.4 g/dL (12.0-15.0); Lymphocyte # 0.97 X10^3/ul (0.83-4.51); Lymphocyte % 18.7 % (19-41); Mean Corp Hgb Conc 32.2 g/dL (32-36); Mean Corpuscular Hgb 29.8 pg (27.0-32.0); Mean Corpuscular Volume 92.5 fL (81-99); Mean Platelet Vol. 9.7 fl (6.2-12.0); Monocyte# 0.59 X10^3/uL; Monocyte% 11.4 % (0-10); NRBC Flagged by Analyzer 0 % (0-5); Neutrophil # 3.41 X10^3/uL (2.7-7.7); Neutrophil % 65.9 % (47-70); Platelet Count 326 K/mm3 (150-450); RBC Distribution Width CV 13.9 % (11.6-14.6); RBC Distribution Width SD 47.3 fl (35.1-43.9); Red Blood Count 4.16 M/mm3 (4.2-5.4); White Blood Count 5.2 K/mm3 (4.4-11.0)
[2023-08-29 11:46] LABS: Vitamin D,25 Hydroxy 79.5 ng/mL
[2023-08-29 11:55] LABS: ALB/GLOB Ratio 1.4 RATIO (0.9-2.4); AST(SGOT) 12 U/L (15-37); Alanine Aminotransfer ALT/SGPT 13 U/L (13-56); Alkaline Phosphatase 66 U/L (45-117); Anion Gap 6 (5-15); BUN 17 mg/dL (7-18); BUN/Creat Ratio 19.3 RATIO (10-20); Calcium,Total 9.4 mg/dL (8.5-10.1); Chloride 105 mmol/L (98-107); Creatinine, Serum 0.88 mg/dL (0.55-1.02); EST Glomerular Filtration Rate 65 mL/min (>60); Est Glom Filt Rate - Afr Amer 78 mL/min (>60); Globulin 2.9 g/dL (2.2-4.2); Glucose 98 mg/dL (74-106); Potassium 4.5 mmol/L (3.5-5.1); Protein, Total 6.9 g/dL (6.4-8.2); Sodium Level 138 mmol/L (136-145)
== END | disposition home or self-care (01) ==
LOC: POLAB3 10:27
PROVIDERS: PCP Family Medicine Geriatric Medicine; Visit Provider Family Medicine Geriatric Medicine
DX: I10 Essential (primary) hypertension (principal); E55.9 Vitamin D deficiency, unspecified
CPT/HCPCS: 36415; 80053; 82306; 84443; 85025

== ENCOUNTER → 2024-02-28 | Outpatient (CLI) | payer MEDICARE, SELFPAY ==
--- NOTE | 2024-02-28 11:34 | RAD_ITS ---
EXAM: XR LUMBOSACRAL SPINE, 4 OR 5 VIEWS CLINICAL INDICATION: SCIATICA R TECHNIQUE: Frontal, lateral and bilateral oblique views of the lumbar spine. COMPARISON: Lumbar spine radiographs, 06/28/2024; CT abdomen and pelvis, 06/25/2021. FINDINGS: VERTEBRAE: L1 compression fracture with mild retropulsion of the posterior cortex similar in appearance to the prior CT examination. Multilevel facet arthrosis and endplate osteophytosis. T10 compression deformity is similar to the prior CT examination. Compression deformity of L3 partially assessed would be new compared to the prior CT examination. [place] right thoracolumbar curvature. No spondylolisthesis. DISC SPACES: Multilevel intervertebral disc height loss. GASTROINTESTINAL TRACT: Moderate colonic stool and gas. Included bowel gas pattern is non-obstructive. RAD/L/S Spine Min 4 Views IMPRESSION: 1. Compression deformity of L3 partially assessed would be new compared to the prior CT examination. Consider follow-up MRI or CT. 2. L1 compression fracture with mild retropulsion of the posterior cortex similar in appearance to the prior CT examination. 3. T10 compression deformity is similar to the prior CT examination. 4. [place]ley right thoracolumbar curvature. Electronically Signed: Jamie Mcgraw DO at 21:29 EDT ,
[2024-02-28 11:58] LABS: Absolute Lymphocyte Count 1.06 X10^3/uL (0.83-4.51); Absolute Neutrophil Count 3.2 X10^3/uL (2.0-7.7); Basophil# 0.09 X10^3/uL; Basophil% 1.8 % (0-1); Eosinophil# 0.06 X10^3/uL; Eosinophils% 1.2 % (0-5); Hematocrit 39.4 % (37-47); Hemoglobin 12.8 g/dL (12.0-15.0); Lymphocyte # 1.06 X10^3/ul (0.83-4.51); Mean Corp Hgb Conc 32.5 g/dL (32-36); Mean Corpuscular Hgb 28.7 pg (27.0-32.0); Mean Corpuscular Volume 88.3 fL (81-99); Mean Platelet Vol. 9.8 fl (6.2-12.0); Monocyte# 0.56 X10^3/uL; Monocyte% 11.1 % (0-10); NRBC Flagged by Analyzer 0 % (0-5); Neutrophil # 3.23 X10^3/uL (2.7-7.7); Neutrophil % 63.9 % (47-70); Platelet Count 337 K/mm3 (150-450); RBC Distribution Width CV 15.1 % (11.6-14.6); RBC Distribution Width SD 48.8 fl (35.1-43.9); Red Blood Count 4.46 M/mm3 (4.2-5.4); White Blood Count 5.1 K/mm3 (4.4-11.0)
[2024-02-28 12:25] LABS: Vitamin D,25 Hydroxy 46.9 ng/mL
[2024-02-28 12:32] LABS: ALB/GLOB Ratio 1.3 RATIO (0.9-2.4); AST(SGOT) 12 U/L (15-37); Alanine Aminotransfer ALT/SGPT 14 U/L (13-56); Alkaline Phosphatase 80 U/L (45-117); Anion Gap 3 (5-15); BUN 19 mg/dL (7-18); Calcium,Total 10.1 mg/dL (8.5-10.1); Chloride 108 mmol/L (98-107); Creatinine, Serum 0.86 mg/dL (0.55-1.02); EST Glomerular Filtration Rate 66 mL/min (>60); Est Glom Filt Rate - Afr Amer 80 mL/min (>60); Globulin 3.1 g/dL (2.2-4.2); Glucose 105 mg/dL (74-106); Potassium 4.2 mmol/L (3.5-5.1); Protein, Total 7.1 g/dL (6.4-8.2); Sodium Level 136 mmol/L (136-145); Thyroid Stim Hormone (TSH) 3.15 uIU/mL (0.358-3.74)
== END | disposition home or self-care (01) ==
PROVIDERS: PCP Family Medicine Geriatric Medicine; Referring Provider Family Medicine Geriatric Medicine; Visit Provider Family Medicine Geriatric Medicine
DX: I10 Essential (primary) hypertension (principal); E55.9 Vitamin D deficiency, unspecified
CPT/HCPCS: 36415; 72110; 80053; 82306; 84443; 85025

== ENCOUNTER → 2024-03-25 | Outpatient (CLI) | payer MEDICARE, SELFPAY ==
--- NOTE | 2024-03-25 09:30 | MRI_ITS ---
EXAM: MR LUMBAR SPINE WITHOUT INTRAVENOUS CONTRAST CLINICAL INDICATION: LUMBAR RADICULOPATHY, COMPRESSION FX OF L3 VERTEBRA TECHNIQUE: Multiplanar and multisequence MR images of the lumbar spine without intravenous contrast. COMPARISON: CT abdomen and pelvis, 06/25/2021 and lumbar spine radiographs, 02/28/2024. FINDINGS: VERTEBRAE: Chronic L1 compression fracture correlating with the prior CT examination. Minimal edema at the posterior superior corner of the vertebral body. Mild retropulsion of the posterior cortex and mild associated spinal canal stenosis. Multilevel facet arthrosis and endplate osteophytosis. No spondylolysis. Grade 1 degenerative anterolisthesis of L2 upon L3 secondary to cirrhosis. L2 is mildly subsided into the superior endplate of L3. Partially visualized degenerative changes throughout the cervical and thoracic spine. Chronic appearing T10 compression fracture. Mild compression deformity of L3. The superior endplate with less than 25% vertebral body height loss. No significant retropulsion of the posterior cortex and no involvement of the posterior elements. No significant edema to suggest that this is an acute injury. SPINAL CORD: No significant abnormality. Normal position and signal intensity of the conus medullaris. SOFT TISSUES: There is atrophic change of the erector spinae muscles. Atrophy of the right psoas muscle is also present. KIDNEYS AND URETERS: There is a right renal cyst for which no follow-up is indicated. DISCS/SPINAL CANAL/NEURAL FORAMINA: T12-L1: Mild retropulsion of the posterior cortex of L1. Facet arthrosis. Disc bulge. Mild to moderate spinal canal stenosis and moderate bilateral neural foraminal narrowing. L1-L2: Disc bulge and mild retropulsion of the posterior cortex of L1. Mild bilateral facet arthrosis. Mild spinal canal stenosis and moderate bilateral neural foraminal narrowing. L2-L3: Severe spinal canal stenosis. Anterolisthesis of L2 on L3. Disc bulge/pseudobulge with superimposed left central to foraminal disc herniation and severe bilateral facet arthrosis. Effacement of CSF from the thecal sac with impingement of the intrathecal nerve roots. The nerve roots are disorganized above the disc level within the thecal sac. There is impingement of the bilateral traversing L3 nerve roots and there is impingement of the left foraminal L2 nerve root. L3-L4: Disc bulge with superimposed right central disc herniation. Moderate facet arthrosis. Moderate right and mild left neural foraminal narrowing. Moderate to severe spinal canal stenosis. Right L3 and right L4 nerve root impingement. L4-L5: Disc bulge with superimposed central disc herniation and moderate bilateral facet arthrosis. Mild bilateral neural foraminal narrowing and mild spinal canal stenosis. Abutment without definite impingement of the bilateral L5 nerve roots. L5-S1: Disc bulge and mild bilateral arthrosis. Right foraminal to extraforaminal disc herniation. Mild to moderate right neural foraminal narrowing and mild spinal canal stenosis. No distinct evidence of nerve root impingement. OTHER FINDINGS: Partially visualized large hiatal hernia. MRI/Spine Lumbar (Routine) IMPRESSION: 1. Chronic L1 compression fracture correlating with the prior CT examination. Minimal edema at the posterior superior corner of the vertebral body. Mild retropulsion of the posterior cortex and mild associated spinal canal stenosis. 2. Multilevel degenerative changes in the spine worse at L2-L3 where there is severe spinal canal stenosis with impingement of the intrathecal nerve roots. Furthermore, impingement of the left L2, bilateral, and right L4 nerve roots. 3. Grade 1 degenerative anterolisthesis of L2 upon L3 secondary to cirrhosis. L2 is mildly subsided into the superior endplate of L3. 4. Partially visualized large hiatal hernia. 5. Partially visualized degenerative changes throughout the cervical and thoracic spine. Chronic appearing T10 compression fracture. 6. Chronic fracture at the superior endplate of L3, new since the prior CT examination. RECOMMENDATIONS: Spine surgery consultation. Electronically Signed: Jamie Mcgraw DO at 11:54 EDT ,
== END | disposition home or self-care (01) ==
PROVIDERS: PCP Family Medicine Geriatric Medicine; Referring Provider Family Medicine Geriatric Medicine; Visit Provider Family Medicine Geriatric Medicine
DX: S32.030A Wedge compression fracture of third lumbar vertebra, initial encounter for closed fracture (principal); M54.16 Radiculopathy, lumbar region
CPT/HCPCS: 72148

== ENCOUNTER → 2024-04-17 | Outpatient (CLI) | payer MEDICARE, SELFPAY ==
--- NOTE | 2024-04-17 08:13 | BD_ITS ---
STUDY: DUAL ENERGY X-RAY ABSORPTIOMETRY / DXA REASON FOR EXAM: Female, 84 years old. [id number] TECHNIQUE: Bone Mineral Density (BMD) measurements of lumbar spine and bilateral hips were obtained. COMPARISON: Comparison is made with prior study dated September 10, 2013. FINDINGS: Lumbar Spine (L1-L4): g/cm2 (0.756) / T-score (-2.6) / Z-score (0.2) Findings are suggestive of osteoporosis with a high fracture risk. Left Femur Total: g/cm2 (0.670) / T-score (-2.2) / Z-score (0.1) Left Femoral Neck: g/cm2 (0.592) / T-score (-2.3) / Z-score (0.2) Right Femur Total: g/cm2 (0.629) / T-score (-2.6) / Z-score (-0.2) Right Femoral Neck: g/cm2 (0.560) / T-score (-2.6) / Z-score (-0.1) The T-Scores on the most recent prior examination were: Lumbar Spine (L1-L4): There has been worsening of bone density since the previous examination. Left Femur Total: which represents a worsening of 15.7%. Right Femur Total: which represents a worsening of 19.8%. BD/Dexa Bone Density Study IMPRESSION: The patient is considered osteoporotic as outlined below according to World [place] Organization (WHO) criteria with a high fracture risk. There has been worsening of bone density since the previous examination. Reference Information: The T-score is the number of standard deviations above or below the standard which is normal for young adults at their peak bone mineral density. The World Health Organization (WHO) interprets the T-scores as follows: Above -1 Normal bone density Between -1 and -2.5 Osteopenia Equal to / or below -2.5 Osteoporosis As a practical clinical guideline, osteopenia may be graded as follows: Mild -1 through -1.5 Moderate -1.6 through -2.0 Severe -2.1 through -2.4 The Z-score is the number of standard deviations above or below age-matched controls. A Z-score of less than -1.5 would be considered abnormal. References: 1. NIH Osteoporosis and Related Bone Diseases www osteo.org 2. International Society for Clinical Densitometry www iscd.org 3. National Osteoporosis Foundation www nof.org Electronically Signed: Lazarus Costa MD at 11:24 EDT ,
== END | disposition home or self-care (01) ==
LOC: OPBD 08:12
PROVIDERS: PCP Family Medicine Geriatric Medicine; Referring Provider Family Medicine Geriatric Medicine; Visit Provider Family Medicine Geriatric Medicine
DX: Z78.0 Asymptomatic menopausal state (principal)
CPT/HCPCS: 77080

== ENCOUNTER 2024-04-24 10:00 | Outpatient (RCR) | payer MEDICARE, SELFPAY ==
--- NOTE | 2024-04-09 14:44 | HP.PTEVAL_ITS ---
Patient's Visit Information Visit Information Visit Information: RIANA OLIVIER is a 84 year old F referred to Physical Therapy by Dr. Darryl Coleman MD with a diagnosis of T10, L1 AND L3 COMPRESSION FRACTURES. LUMBAR SPINAL STENOSIS.. Date of Evaluation: 04/05/24 Physical Therapist: Shilpi Velasquez PT, Cert MDT Visit Plan Frequency: 2-3x /Week Duration: 4-6 Weeks Plan: *Neutral* Spine Core Stability Exercises and Roxana LE Hip Flexor, Hamstring and Calf Stretching to help reduce stress to the Lumbar Spine with all Daily Activities. Roxana UE and LE Strengthening including scapular and postural strengthening. Instruction in Proper Posture Control, Body Mechanics, and Appropriate Activity Modifications. HEP Instruction. Subjective Subjective: Work/Leisure: RETIRED. DRIVES. LIVES WITH - RELATIVELY GOOD HEALTH. Present symptoms: LOW BACK PAIN. ROXANA THIGH PAIN R>L Present since: ABOUT 2 YEARS AGO Pain Scale: WORST 9/10, LEAST 0/10 Currently: 5/10 Is it getting better, worse or staying the same: GETTING A LITTLE BIT BETTER SINCE STARTING THE PILLS THIS WEEK (TRAMADOL - DR. POLLARD) Commenced as a result of: I FELL A COUPLE TIMES Symptoms at onset: MORE PAIN R THIGH Worse: SITTING, STANDING, WALKING, WEEDING - IT HURTS BUT I CAN'T STAND TO SEE THE WEEDS, BENDING, HOUSEWORK, MAKING BEDS PUTS ME IN TEARS, CAN HARDLY STAND TO DO DISHES AND PEEL POTATOES, Better: LYING DOWN, TRAMADOL Disturbed sleep: NO Previous history/Previous treatment: UNREMARKABLE Treatment this episode: PUTTING BLANKETS UP OVER HEAD USING A STEP LADDER. WHEN STEPPING DOWN FELL BACKWARDS AND LANDED ON BACK. ALSO WAS WORKING IN [employer] AND NEIGHBORS [employer] GOT OUT AND KNOCKED HER OVER. STATES DR. COLEMAN GAVE HER SOME PAIN SHOTS AND DR. POLLARD GAVE HER SOME PAIN PILLS (TRAMADOL) AND THE PAIN SHOTS AND PILLS ARE HELPING. Coughing/sneezing/straining: POSITIVE FOR INCREASED PAIN. FOLLOW UP PENDING WITH DR. POLLARD AGAIN NEXT MONDAY. PATIENT REPORTS DR. POLLARD KNOWS DR. COLEMAN ORDERED PHYSICAL THERAPY AND THAT SHE HAS PT TODAY. Gait: TIME AND DISTANCE LIMITED BY PAIN. HAVING TROUBLE STANDING UP STRAIGHT. Bowel or Bladder Dysfunction: NO Accidents: NO Unexplained weight loss: NO Imagin03/25/24 SPINE MRI: 1. Chronic L1 compression fracture correlating with the prior CT examination. Minimal edema at the posterior superior corner of the vertebral body. Mild retropulsion of the posterior cortex and mild associated spinal canal stenosis. 2. Multilevel degenerative changes in the spine worse at L2-L3 where there is severe spinal canal stenosis with impingement of the intrathecal nerve roots. Furthermore, impingement of the left L2, bilateral, and right L4 nerve roots. 3. Grade 1 degenerative anterolisthesis of L2 upon L3 secondary to cirrhosis. L2 is mildly subsided into the superior endplate of L3. 4. Partially visualized large hiatal hernia. 5. Partially visualized degenerative changes throughout the cervical and thoracic spine. Chronic appearing T10 compression fracture. 6. Chronic fracture at the superior endplate of L3, new since the prior CT examination. RECOMMENDATIONS: Spine surgery consultation. PMH/Recent major surgery: HTN, HYPOTHYROIDISM OTHER: PATIENT REPORTS SHE HAS BEEN HAVING A LOT OF PAIN FOR ABOUT 6 MON[address] MORE. WHEN DR. COLEMAN GAVE HER THE SHOTS FOR PAIN A FEW WEEKS AGO IT HELPED BUT THEY STARTED TO WEAR OFF. STARTED TRAMADOL YESTERDAY AND NOT IN MUCH PAIN TODAY YESTERDAY. Objective Objective: Sitting/Standing Posture: INCREASED KYPHOSIS AND SCOLIOTIC Active Correction of posture: UNABLE TO CORRECT AND ATTEMPTS INCREASE PAIN. Other Observations: PATIENT MOVES impulsively AT TIMES AND TRIES TO PUSH THROUGH THE PAIN DESPITE CUES TO STOP. SHE AMBULATES INDEP'LY INTO PT WITH SLOW ANTALGIC GAIT PATTERN WITH INCREASED TRUNK FLEXION AND GOES INTO GREATER TRUNK FLEXION THE FURTHER SHE WALKS. Sensory deficit: ROXANA UE AND LE LIGHT TOUCH SENSATION GROSSLY INTACT AND SYMMETRICAL ROM deficit: ROXANA HIP FLEXOR AND ABDOMINAL TIGHTNESS. Motor deficit: ROXANA SCAPULAR AND HIP WEAKNESS 4/5. Lumbar mvmt loss: flex - MIN ext - LENIN R SG - LENIN L SG - LENIN ROXANA THORACIC ROT - MOD PATIENT C/O BACK PAIN WITH SPINE ROM TESTING ALL PLANES. AGAIN, CAUTIONED PA TIENT TO ONLY MOVE IN COMFORTABLE ROM DURING TESTING BUT TENDS TO FORCE THROUGH PAIN ANYWAY. Core strength: POOR Palpation: PATIENT DENIES TENDERNESS WITH THORACIC PALPATION BUT REPORTS TENDERNESS WITH LIGHT PALPATION OF UPPER LUMBAR SPINE AND ROXANA LUMBAR PARASPINALS R > L. Balance/Special Test Scores Oswestry Low Back Score: 22 Goals Goal 1:: DECREASE C/O LOW BACK PAIN BY AT LEAST 50% TO EASE ADL'S. Goal Time Frame: 4-6 Weeks Goal 2:: PATIENT WILL BE ABLE TO WALK FOR AT LEAST 10 MINUTES WITHOUT AD AND WITHOUT AGGREVATION OF SYMPTOMS IN ORDER TO PERFORM ADL'S AND IADL'S. Goal Time Frame: 4-6 Weeks Goal 3:: PATIENT WILL SCORE AT LEAST 5 POINTS BETTER ON BACK OSWESTRY QUESTIONNAIRE Goal Time Frame: 4-6 Weeks Goal 4:: PATIENT WILL BE INDEP WITH A HEP FOR CONTINUED IMPROVEMENT ONCE FORMAL PHYSICAL THERAPY CONCLUDES. Goal Time Frame: 4-6 Weeks Rehabilitation Potential Physical Therapy Diagnosis: THIS PATIENT PRESENTS TO PT WITH PAIN, HYPOMOBILITY, DIFFICULTY WITH GAIT, WEAKNESS AND STIFFNESS. Rehabilitation Potential: Good Anticipated Interventions Patient/Client Instruction: Educate patient on: Condition, Plan of Care and Risk Factors For the Purpose of:: To improve self management Therapeutic Exercise to Include: Strength training, Body mechanics, Postural training, Flexibilty training, Gait and locomotor training, Neuromotor development, Dynamic Lumbar Stabilization and Scapular Strength/Stabilization For the Purpose of:: To decrease pain, To improve muscle performance and motor function, To improve ability to perform ADL's, To increase tolerance to activity/condition/position, To improve ability of physical actions for home/community/work/leisure, To improve gait and locomotor functions, To increase flexibility/ROM, To improve self management and To improve ability to perform tasks related to life management Thermo therapy (hot pack): Yes For the Purpose of:: To decrease pain and To improve nutrient delivery to tissue Text: Thank you for the opportunity to evaluate your patient. For Medicare and Medicare HMO plans, please review the plan of care and approve it. It will need to be FAXED BACK to us at [phone] for Medicare purposes. For Medicare only, by signing this I certify the plan of care. Please let me know if there are questions or concerns regarding this plan of care. Physician Signature: Date:
--- NOTE | 2024-04-24 14:16 | HP.PTREVAL ---
Re-Evaluation Intro: Dr. Darryl Coleman MD, It has been my pleasure to treat RIANA OLIVIER over the last 7 visits for T10, L1 AND L3 COMPRESSION FRACTURES. LUMBAR SPINAL STENOSIS.. Please see the progress note below for an update on the physical therapy plan of care! Subjective Subjective: PATIENT STATES SHE IS A LOT BETTER THAN SHE WAS. IT DON'T HURT MUCH AND I CAN STAND LONGER. MY WALKING IS GETTING BETTER TOO SHE STATES IF SHE SITS TOO LONG IT TAKES HER AWHILE TO GET GOING. 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 DENIES ANY FALLS SINCE STARTING THERAPY. STILL REFUSING TO USE ANY ASSISTIVE DEVICES. REPORTS SHE HAS AN VALERIO'T WITH DR. GILLESPIE TOMORROW AND FOLLOW UP WITH DR. MEJIA NEXT WEEK. Objective Objective/Function: PATIENT REPORTS IMPROVMENT IN BACK/LEG PAIN AND ADL FUNCTION SINCE STARTING PT HOWEVER HER PAIN (ESPECIALLY HER R THIGH PAIN) IS STILL EASILY PROVOKED TO 8/10 WITH WALKING IN LITTLE 250 FEET. SHE ALSO EXHIBITS INCREASED TRUNK FLEXION DURING GAIT THAT INCREASES WITH DISTANCE AND BECOMES EXCESSIVE IN LITTLE 150 TO 200 FEET. SHE DOES NOT USE AN ASSISTIVE DEVICE AND WALKS WITH VERY SHORT ROXANA STRIDE LENGTH AND UNSTEADY GAIT. THIS PT HAS ENCOURAGED HER TO USE AN ASSISTIVE DEVICE BUT SHE DOES NOT FEEL SHE NEEDS TO. SHE STATES SHE DOES HAVE A CANE AT HOME AND SHE PLANS TO USE IT TO GO SEE HER GRANDDAUGHTER PLAN IN THE [place] NEXT MONDAY NIGHT BUT OTHERWISE SHE DOESN'T THINK SHE NEEDS IT. PATIENT IS UNABLE TO SLS ON EITHER LE AND MORE THAN A SECOND OR TWO WITHOUT UE ASSIST. THIS PT EDUCATED HER ON HER RISK OF FALLING AND STRONGLY ENCOURAGED HER TO CONSIDER USE OF A ROLLATOR FOR BALANCE, IMRPOVED POSTURE AND PAIN RELIEF. SHE REMAINED RELUCTANT. TUG TIME TODAY IS 20.41 SEC. Sensory deficit: ROXANA UE AND LE LIGHT TOUCH SENSATION GROSSLY INTACT AND SYMMETRICAL ROM deficit: ROXANA HIP FLEXOR AND ABDOMINAL TIGHTNESS. Motor deficit: ROXANA SCAPULAR AND HIP WEAKNESS 4/5. Lumbar mvmt loss: NT Core strength: POOR Palpation: PATIENT DENIES TENDERNESS WITH THORACIC PALPATION BUT REPORTS TENDERNESS WITH PALPATION OF UPPER LUMBAR SPINE AND ROXANA LUMBAR PARASPINALS R > L. DISCUSSED HOLDING PT WITH PATIENT UNTIL SHE SEES DR. GILLESPIE AND/OR DR. MEJIA - PATIENT AGREEABLE. Plan Plan Plan: HOLD PT UNTIL CONSULT WITH DR. GILLESPIE TOMORROW. RESUME PT IF NEW ORDERS REC'D FROM DR. GILLESPIE AND/OR DR. MEJIA. *Neutral* Spine Core Stability Exercises and Roxana LE Hip Flexor, Hamstring and Calf Stretching to help reduce stress to the Lumbar Spine with all Daily Activities. Roxana UE and LE Strengthening including scapular and postural strengthening. Instruction in Proper Posture Control, Body Mechanics, and Appropriate Activity Modifications. HEP Instruction. Balance/Gait/Functional tests Balance/Special Test Scores Oswestry Low Back Score: 24 Goals Goals Goal 1:: DECREASE C/O LOW BACK PAIN BY AT LEAST 50% TO EASE ADL'S. Goal Time Frame: 4-6 Weeks Goal Progress: Progressing Goal 2:: PATIENT WILL BE ABLE TO WALK FOR AT LEAST 10 MINUTES WITHOUT AD AND WITHOUT AGGREVATION OF SYMPTOMS IN ORDER TO PERFORM ADL'S AND IADL'S. Goal Time Frame: 4-6 Weeks Goal Progress: Progressing Goal 3:: PATIENT WILL SCORE AT LEAST 5 POINTS BETTER ON BACK OSWESTRY QUESTIONNAIRE Goal Time Frame: 4-6 Weeks Goal Progress: Not Progressing Goal 4:: PATIENT WILL BE INDEP WITH A HEP FOR CONTINUED IMPROVEMENT ONCE FORMAL PHYSICAL THERAPY CONCLUDES. Goal Time Frame: 4-6 Weeks Goal Progress: Progressing Anticipated Interventions Anticipated Interventions Patient/Client Instruction: Educate patient on: Condition, Plan of Care and Risk Factors For the Purpose of:: To improve self management Therapeutic Exercise to Include: Strength training, Body mechanics, Postural training, Flexibilty training, Gait and locomotor training, Neuromotor development, Dynamic Lumbar Stabilization and Scapular Strength/Stabilization For the Purpose of:: To decrease pain, To improve muscle performance and motor function, To improve ability to perform ADL's, To increase tolerance to activity/condition/position, To improve ability of physical actions for home/community/work/leisure, To improve gait and locomotor functions, To increase flexibility/ROM, To improve self management and To improve ability to perform tasks related to life management Thermo therapy (hot pack): Yes For the Purpose of:: To decrease pain and To improve nutrient delivery to tissue Re-Evaluation Ending Re-evaluation ending: Please do not hesitate to contact me at [phone] by phone or if you have questions or concerns regarding this new plan of care! Sincerely, Shilpi Velasquez, PT, Cert MDT
== END 2024-04-24 19:00 | disposition home or self-care (01) ==
LOC: PT 10:00
PROVIDERS: PCP Family Medicine Geriatric Medicine; Referring Provider Family Medicine Geriatric Medicine; Visit Provider Family Medicine Geriatric Medicine
DX: S32.030D Wedge compression fracture of third lumbar vertebra, subsequent encounter for fracture with routine healing (principal); S32.010D Wedge compression fracture of first lumbar vertebra, subsequent encounter for fracture with routine healing; S22.070D Wedge compression fracture of T9-T10 vertebra, subsequent encounter for fracture with routine healing; M48.061 Spinal stenosis, lumbar region without neurogenic claudication
CPT/HCPCS: 97110; 97162; 97530

== ENCOUNTER → 2024-09-02 | Outpatient (CLI) | payer MEDICARE, SELFPAY ==
[2024-09-02 12:17] LABS: Absolute Lymphocyte Count 0.91 X10^3/uL (0.83-4.51); Absolute Neutrophil Count 3.8 X10^3/uL (2.0-7.7); Basophil# 0.07 X10^3/uL; Basophil% 1.3 % (0-1); Eosinophil# 0.04 X10^3/uL; Eosinophils% 0.7 % (0-5); Hematocrit 40.1 % (37-47); Hemoglobin 12.8 g/dL (12.0-15.0); Lymphocyte # 0.91 X10^3/ul (0.83-4.51); Mean Corp Hgb Conc 31.9 g/dL (32-36); Mean Corpuscular Hgb 29.6 pg (27.0-32.0); Mean Corpuscular Volume 92.6 fL (81-99); Mean Platelet Vol. 9.7 fl (6.2-12.0); Monocyte# 0.54 X10^3/uL; Monocyte% 10.1 % (0-10); NRBC Flagged by Analyzer 0 % (0-5); Neutrophil # 3.78 X10^3/uL (2.7-7.7); Neutrophil % 70.5 % (47-70); Platelet Count 304 K/mm3 (150-450); RBC Distribution Width CV 13.5 % (11.6-14.6); RBC Distribution Width SD 45.7 fl (35.1-43.9); Red Blood Count 4.33 M/mm3 (4.2-5.4); White Blood Count 5.4 K/mm3 (4.4-11.0)
[2024-09-02 12:43] LABS: Vitamin D,25 Hydroxy 47.6 ng/mL
[2024-09-02 12:53] LABS: ALB/GLOB Ratio 1.3 RATIO (0.9-2.4); AST(SGOT) 11 U/L (15-37); Alanine Aminotransfer ALT/SGPT 14 U/L (13-56); Albumin, Serum 4.1 g/dL (3.2-5.0); Alkaline Phosphatase 83 U/L (45-117); Anion Gap 6 (5-15); BUN 20 mg/dL (7-18); BUN/Creat Ratio 22.4 RATIO (10-20); Chloride 104 mmol/L (98-107); Creatinine, Serum 0.89 mg/dL (0.55-1.02); EST Glomerular Filtration Rate 64 mL/min (>60); Est Glom Filt Rate - Afr Amer 77 mL/min (>60); Globulin 3.1 g/dL (2.2-4.2); Glucose 105 mg/dL (74-106); Potassium 4.1 mmol/L (3.5-5.1); Protein, Total 7.2 g/dL (6.4-8.2); Sodium Level 137 mmol/L (136-145)
== END | disposition home or self-care (01) ==
LOC: LAB 11:34
PROVIDERS: PCP Family Medicine Geriatric Medicine; Referring Provider Family Medicine Geriatric Medicine; Visit Provider Family Medicine Geriatric Medicine
DX: I10 Essential (primary) hypertension (principal); E55.9 Vitamin D deficiency, unspecified
CPT/HCPCS: 36415; 80053; 82306; 84443; 85025

== ENCOUNTER → 2025-02-28 | Outpatient (CLI) | payer MEDICARE, SELFPAY ==
[2025-02-28 11:36] LABS: Absolute Lymphocyte Count 1.02 X10^3/uL (0.83-4.51); Absolute Neutrophil Count 3.5 X10^3/uL (2.0-7.7); Basophil# 0.07 X10^3/uL; Basophil% 1.3 % (0-1); Eosinophil# 0.09 X10^3/uL; Eosinophils% 1.7 % (0-5); Hematocrit 39.5 % (37-47); Hemoglobin 12.9 g/dL (12.0-15.0); Lymphocyte # 1.02 X10^3/ul (0.83-4.51); Lymphocyte % 19.3 % (19-41); Mean Corp Hgb Conc 32.7 g/dL (32-36); Mean Corpuscular Hgb 29.4 pg (27.0-32.0); Mean Platelet Vol. 9.8 fl (6.2-12.0); Monocyte# 0.59 X10^3/uL; Monocyte% 11.2 % (0-10); NRBC Flagged by Analyzer 0 % (0-5); Neutrophil # 3.48 X10^3/uL (2.7-7.7); Neutrophil % 65.7 % (47-70); Platelet Count 309 K/mm3 (150-450); RBC Distribution Width CV 14.6 % (11.6-14.6); RBC Distribution Width SD 48.2 fl (35.1-43.9); Red Blood Count 4.39 M/mm3 (4.2-5.4); White Blood Count 5.3 K/mm3 (4.4-11.0)
[2025-02-28 12:25] LABS: ALB/GLOB Ratio 1.7 RATIO (0.9-2.4); AST(SGOT) 16 U/L (<=31); Alanine Aminotransfer ALT/SGPT 11 U/L (<=34); Albumin, Serum 4.3 g/dL (3.4-4.8); Alkaline Phosphatase 118 U/L (35-104); Anion Gap 11 (5-15); BUN 21 mg/dL (4-19); BUN/Creat Ratio 25.6 RATIO (10-20); Calcium,Total 9.6 mg/dL (7.6-11.0); Carbon Dioxide 23.9 mmol/L (21.0-32.0); Chloride 103 mmol/L (98-108); Creatinine, Serum 0.81 mg/dL (0.70-1.20); EST Glomerular Filtration Rate 71 (>60); Globulin 2.6 g/dL (2.2-4.2); Glucose 103 mg/dL (70-99); Potassium 4.8 mmol/L (3.3-5.1); Protein, Total 6.9 g/dL (5.9-8.4); Sodium Level 138 mmol/L (133-145); Total Bilirubin 0.66 mg/dL (0.00-1.30); Vitamin D,25 Hydroxy 52.2 ng/mL (30-100)
--- OUTSIDE RECORDS SUMMARY | 2025-02-28 13:23 | XMS RPT_ITS | CCD ---
Author Organization [facility] Care Team Providers Care Envelope Cutter Name Role Phone Dr. Darryl Phipps Chi Primary Care Provider Dr. Darryl Phipps Chi Referring Provider MD Bismark Guerrero Attending Provider [phone] Kole Sorensen Attending Unavailable Jared, Darryl Chi Primary Care Unavailable Jared, Darryl Chi Primary Care Unavailable Jared, Darryl Chi Attending Unavailable Jared, Darryl Chi Referring Unavailable Jared, Darryl Chi Primary Care Unavailable Jared, Darryl Chi Attending Unavailable Jared, Darryl Chi Referring Unavailable Jared, Darryl Chi Primary Care Unavailable Jared, Darryl Chi Attending Unavailable Jared, Darryl Chi Referring Unavailable Jared, Darryl Chi Attending Unavailable Jared, Darryl Chi Referring Unavailable Jared, Darryl Chi Primary Care Unavailable Jared, Darryl Chi Primary Care Unavailable Dao Webber Attending Unavailable Jared, Darryl Chi Referring Unavailable Jared, Darryl Chi Primary Care Unavailable Jared, Darryl Chi Attending Unavailable Jared, Darryl Chi Referring Unavailable Medications Current Medications Medication Drug Class(es) Dates Sig (Normalized) Sig (Original) levothyroxine sodium 0.025 mg oral tablet (5 sources) l-Thyroxine Start: 06-25-2021 take 1 tablet by mouth at bedtime Levothyroxine (Euthyrox) 25 mcg tablet Active 25 MCG PO AT BEDTIME June 24, 2021 11:00pm lisinopril 40 mg oral tablet (5 sources) Angiotensin Converting Enzyme Inhibitor Start: 06-25-2021 take 40 mg by mouth once daily Lisinopril Active 40 MG PO DAILY June 24, 2021 11:00pm Multivitamin preparation (2 sources) Start: 02-20-2023 take 1 tablet by mouth once daily Multivitamin Active 1 TABLET PO DAILY February 19, 2023 11:00pm Start: 02-20-2023 take 1 tablet by bruno th once daily Multivitamin Active 1 TABLET PO DAILY February 20, 2023 12:00am Completed/Discontinued Medications Medication Drug Class(es) Dates Sig (Normalized) Sig (Original) sulfamethoxazole 800 mg / trimethoprim 160 mg oral tablet (5 sources) Dihydrofolate Reductase Inhibitor Antibacterial, Sulfonamide Antimicrobial Start: 06-25-2021 End: 02-20-2023 take 1 tablet by mouth every twelve hours Sulfamethoxazole- Trimethoprim (Bactrim Ds) 800-160 mg tablet Discontinued 1 TABLET PO Q12H June 24, 2021 11:00pm February 20, 2023 8:23am Problems Active Problems Problem Classification Problem Date Documented Da te Episodic/Chronic Essential hypertension (1 source) Essential (primary) hypertension; Translations: [Essential (primary) hypertension] Onset: 10-03-2024 Chronic Other fractures (1 source) Wedge compression fracture of third lumbar vertebra, initial encounter for closed fracture; Translations: [Wedge compression fracture of third lumbar vertebra, initial encounter for closed fracture] Onset: 09-05-2024 Episodic Other fractures (1 source) Wedge compression fracture of first lumbar vertebra, initial encounter for closed fracture; Translations: [Wedge compression fracture of first lumbar vertebra, initial encounter for closed fracture] Onset: 09-05-2024 Episodic Other fractures (1 source) Wedge compression fracture of T9-T10 vertebra, initial encounter for closed fracture; Translations: [Wedge compression fracture of T9-T10 vertebra, initial encounter for closed fracture] Onset: 09-05-2024 Episodic Other nervous system disorders (2 sources) Carpal tunnel syndrome; Translations: [Carpal tunnel syndrome, right upper limb] 02-20-2023 Chronic Other nervous system disorders (1 source) Carpal tunnel syndrome, right upper limb; Translations: [Carpal tunnel syndrome] 02-20-2023 Chronic Spondylosis; intervertebral disc disorders; other back problems (1 source) Spinal stenosis, lumbar region without neurogenic claudication; Translations: [Spinal stenosis, lumbar region without neurogenic claudication] Onset: 09-05-2024 Episodic Unclassified (1 source) Low back pain, unspecified; Translations: [Low back pain, unspecified] Onset: 04-26-2024 Past or Other Problems Problem Classification Problem Date Documented Da te Episodic/Chronic Residual codes; unclassified (1 source) Asymptomatic menopausal state; Translations: [Asymptomatic menopausal state] Onset: 05-11-2024 Episodic Results Test Name Value Interpretation Reference Range Facility CBC W/Diff, Automatedon 12-2 Absolute Lymph 0.91 X10 3/uL Normal 0.83-4.51 [facility] Comment on above: Performed By: #### L 100.0100, L506.1000, L500.4050, L501.9520 #### [facility] [address] [place], [address] Absolute Neut 3.8 X10 3/uL Normal 2.0-7.7 [facility] Comment on above: Performed By: #### L 100.0100, L506.1000, L500.4050, L501.9520 #### [facility] [address] [place], [address] Basophils/100 WBC (Bld) 1.3 % High 0-1 [facility] Comment on above: Performed By: #### L 100.0100, L506.1000, L500.4050, L501.9520 #### [facility] [address] [place], [address] Eosinophils/100 WBC (Bld) 0.7 % Normal 0-5 [facility] Comment on above: Performed By: #### L 100.0100, L506.1000, L500.4050, L501.9520 #### [facility] [address] [place], [address] Erythrocyte distribution width (RBC) [Ratio] 13.5 % Normal 11.6-14.6 [facility] Comment on above: Performed By: #### L 100.0100, L506.1000, L500.4050, L501.9520 #### [facility] [address] [place], [address] Hematocrit (Bld) [Volume fraction] 40.1 % Normal 37-47 [facility] Comment on above: Performed By: #### L 100.0100, L506.1000, L500.4050, L501.9520 #### [facility] [address] [place], [address] Hemoglobin (Bld) [Mass/Vol] 12.8 g/dL Normal 12.0-15.0 [facility] Comment on above: Performed By: #### L 100.0100, L506.1000, L500.4050, L501.9520 #### [facility] [address] [place], [address] IG% 0.400 Normal 0.0-0.9 [facility] Comment on above: Result Comment: IG% - Immature Granulocytes (promyelocytes, myelocytes and metamyelocytes) > 1% indicates that a LEFT SHIFT is Present. Performed By: #### L 100.0100, L506.1000, L500.4050, L501.9520 #### [facility] [address] [place], [address] Lymphocytes/100 WBC (Bld) 17.0 % Low 19-41 [facility] Comment on above: Performed By: #### L 100.0100, L506.1000, L500.4050, L501.9520 #### [facility] [address] [place], [address] MCH (RBC) [Entitic mass] 29.6 pg Normal 27.0-32.0 [facility] Comment on above: Performed By: #### L 100.0100, L506.1000, L500.4050, L501.9520 #### [facility] [address] [place], [address] MCHC (RBC) [Mass/Vol] 31.9 g/dL Low 32-36 [facility] Comment on above: Performed By: #### L 100.0100, L506.1000, L500.4050, L501.9520 #### [facility] [address] [place], [address] MCV (RBC) [Entitic vol] 92.6 fL Normal 81-99 [facility] Comment on above: Performed By: #### L 100.0100, L506.1000, L500.4050, L501.9520 #### [facility] [address] [place], [address] Monocytes/100 WBC (Bld) 10.1 % High 0-10 [facility] Comment on above: Performed By: #### L 100.0100, L506.1000, L500.4050, L501.9520 #### [facility] [address] [place], [address] Neutrophils/100 WBC (Bld) 70.5 % High 47-70 [facility] Comment on above: Performed By: #### L 100.0100, L506.1000, L500.4050, L501.9520 #### [facility] [address] [place], [address] Nucleated RBC (Bld) [#/Vol] 0 10*3/uL Normal 0-5 [facility] Comment on above: Performed By: #### L 100.0100, L506.1000, L500.4050, L501.9520 #### [facility] [address] [place], [address] Platelet mean volume (Bld) [Entitic vol] 9.7 fL Normal 6.2-12.0 [facility] Comment on above: Performed By: #### L 100.0100, L506.1000, L500.4050, L501.9520 #### [facility] [address] [place], [address] Platelets (Bld) [#/Vol] 304 10*3/uL Normal 150-450 [facility] Comment on above: Performed By: #### L 100.0100, L506.1000, L500.4050, L501.9520 #### [facility] [address] [place], [address] RBC (Bld) [#/Vol] 4.33 10*6/uL Normal 4.2-5.4 [facility] Comment on above: Performed By: #### L 100.0100, L506.1000, L500.4050, L501.9520 #### [facility] [address] [place], [address] RDW SD 45.7 fl High 35.1-43.9 [facility] Comment on above: Performed By: #### L 100.0100, L506.1000, L500.4050, L501.9520 #### [facility] [address] [place], [address] WBC (Bld) [#/Vol] 5.4 10*3/uL Normal 4.4-11.0 [facility] Comment on above: Performed By: #### L 100.0100, L506.1000, L500.4050, L501.9520 #### [facility] [address] [place], [address] Comprehensive Metabolic [facility] 09-02-2024 Albumin [Mass/Vol] 4.1 g/dL Normal 3.2-5.0 [facility] Comment on above: Performed By: #### L 100.0100, L506.1000, L500.4050, L501.9520 #### [facility] [address] [place], [address] Albumin/Globulin [Mass ratio] 1.3 {ratio} Normal 0.9-2.4 [facility] Comment on above: Performed By: #### L 100.0100, L506.1000, L500.4050, L501.9520 #### [facility] [address] [place], [address] ALK P 83 U/L Normal 45-117 [facility] Comment on above: Performed By: #### L 100.0100, L506.1000, L500.4050, L501.9520 #### [facility] [address] [place], [address] ALT [Catalytic activity/Vol] 14 U/L Normal 13-56 [facility] Comment on above: Performed By: #### L 100.0100, L506.1000, L500.4050, L501.9520 #### [facility] [address] [place], [address] AST [Catalytic activity/Vol] 11 U/L Low 15-37 [facility] Comment on above: Performed By: #### L 100.0100, L506.1000, L500.4050, L501.9520 #### [facility] [address] [place], [address] Bilirubin [Mass/Vol] 1.20 mg/dL High 0.20-1.00 [facility] Comment on above: Result Comment: For patients on eltrombopag therapy, use of Dimension [place] TBIL is not recommended. Performed By: #### L 100.0100, L506.1000, L500.4050, L501.9520 #### [facility] [address] [place], [address] BUN/CRE 22.4 RATIO High 10-20 [facility] Comment on above: Performed By: #### L 100.0100, L506.1000, L500.4050, L501.9520 #### [facility] [address] [place], [address] CA,Total 10.0 mg/dL Normal 8.5-10.1 [facility] Comment on above: Performed By: #### L 100.0100, L506.1000, L500.4050, L501.9520 #### [facility] [address] [place], [address] Chloride [Moles/Vol] 104 mmol/L Normal 98-107 [facility] Comment on above: Performed By: #### L 100.0100, L506.1000, L500.4050, L501.9520 #### [facility] [address] [place], [address] CO2 [Moles/Vol] 26.0 mmol/L Normal 21.0-32.0 [facility] Comment on above: Performed By: #### L 100.0100, L506.1000, L500.4050, L501.9520 #### [facility] [address] [place], [address] Creatinine [Mass/Vol] 0.89 mg/dL Normal 0.55-1.02 [facility] Comment on above: Result Comment: The validity of the calculated GFR GFRAA in patients over 70 years has not been determined. Clinical correlation is essential. Performed By: #### L 100.0100, L506.1000, L500.4050, L501.9520 #### [facility] [address] [place], [address] EST GFR - AA 77 mL/min Normal >60 [facility] Comment on above: Result Comment: Afri can Nigerian GFR Calc Performed By: #### L 100.0100, L506.1000, L500.4050, L501.9520 #### [facility] [address] [place], [address] GAP 6 Normal 5-15 [facility] Comment on above: Performed By: #### L 100.0100, L506.1000, L500.4050, L501.9520 #### [facility] [address] [place], [address] GFR/1.73 sq M.predicted among non-blacks MDRD (S/P/Bld) [Vol rate/Area] 64 mL/min/{1.73_m2} Normal >60 [facility] Comment on above: Result Comment: Non- GFR Calc Performed By: #### L 100.0100, L506.1000, L500.4050, L501.9520 #### [facility] [address] [place], [address] Globulin (S) [Mass/Vol] 3.1 g/dL Normal 2.2-4.2 [facility] Comment on above: Performed By: #### L 100.0100, L506.1000, L500.4050, L501.9520 #### [facility] [address] [place], [address] Glucose [Mass/Vol] 105 mg/dL Normal 74-106 [facility] Comment on above: Result Comment: Fast ing Glucose result from 100 to 125 mg/dL suggests IMPAIRED HOMEOSTASIS per A.D.A. criteria. Performed By: #### L 100.0100, L506.1000, L500.4050, L501.9520 #### [facility] [address] [place], [address] Potassium [Moles/Vol] 4.1 mmol/L Normal 3.5-5.1 [facility] Comment on above: Performed By: #### L 100.0100, L506.1000, L500.4050, L501.9520 #### [facility] [address] [place], [address] Sodium [Moles/Vol] 137 mmol/L Normal 136-145 [facility] Comment on above: Performed By: #### L 100.0100, L506.1000, L500.4050, L501.9520 #### [facility] [address] [place], [address] T PROT 7.2 g/dL Normal 6.4-8.2 [facility] Comment on above: Performed By: #### L 100.0100, L506.1000, L500.4050, L501.9520 #### [facility] [address] [place], [address] Urea nitrogen [Mass/Vol] 20 mg/dL High - [facility] Comment on above: Performed By: #### L 100.0100, L506.1000, L500.4050, L501.9520 #### [facility] [address] [place], [address] Thyroid Stim Hormone (TSH)on 09-02-2024 TSH 2.090 uIU/mL Normal 0.358-3.740 [facility] Comment on above: Performed By: #### L 100.0100, L506.1000, L500.4050, L501.9520 ####[facility] [id number] [place], [address] Vitamin D,25 Hydroxyon 09-02 Vitamin D 25-OH 47.6 ng/mL Normal [facility] Comment on above: Result Comment: Vannessa min D 25(OH) Status Range Deficiency <20 ng/mL (50nmol/L) Insufficiency 20 - 30 ng/mL (50 - 75 nmol/L) Sufficiency 30 - 100 ng/mL (75 - 250 nmol/L) Toxicity >100 ng/mL (>250 nmol/L) Performed By: #### L 100.0100, L506.1000, L500.4050, L501.9520 #### [facility] [address] [place], [address] L/S Spine Bending Flex/[place] 04-26-2024 L/S Spine Bending Flex/Ext [facility] [address] [place] [address] L/S Spine Bending Flex/Ext MR#: [id number] Acct: [id number] Name: RIANA OLIVIER Rep #: [id number] : 1940 F 84 From: Michael Solis MD PCP: Dr. Darryl Phipps MD Status: DEP AMB Study: L/S Spine Bending Flex/Ext Date of Exam: 04/26 Exam# [id number] Ordering Dr: Maryjane Us [id number] STUDY: X-RAY - LUMBAR SPINE REASON FOR EXAM: Female, 84 years old. Low back pain. TECHNIQUE: Lateral flexion and extension view(s) of the lumbar spine were obtained. COMPARISON: February 28, 2024 FINDINGS: Stable osteopenia, anterior wedge compression deformity of L1, diffuse lower thoracic and lumbosacral moderate to marked facet sclerosis and diffuse moderate lower thoracic and lumbosacral spondylosis. Limited flexion and extension with no abnormal motion appreciated Postsurgical changes in the pelvis and vascular calcification. RAD/L/S Spine Bending Flex/Ext IMPRESSION: Stable spine with limited flexion and extension and no abnormal motion. Electronically Signed: Michael Solis MD at 15:58 EDT , CC: DIGNA Arredondo; Dr. Darryl Phipps MD Customer Service Coordinator: Signed Normal [facility] Orthopedic Visit Reporton Orthopedic Visit Report [facility] [address] [place] [address] [address] [place] [address] OFFICE VISIT Date of Service: 04/26/24 MR#: [id number] Acct: [id number] Name: RIANA OLIVIER Rep #: [id number] : 1940 Provider: Dr. Dao Webber MD Age/Sex: 84/F Location: [facility] [place] Status: Signed Intake Vital Signs 03/08/23 08:35 Height 5 ft 5 in Intake Visit Reasons: LUMBAR SPINE Chief Complaint: lumbar spine Is patient in pain?: Yes (lumbar spine ) Pain scale (1-10): 6 Allergies No Known Allergies Allergy (Verified 04/26/24 12:27) Medications ???Medication ???Instructions ???Recorded ???Confirmed ???Type levothyroxine 25 mcg tablet 25 mcg PO QHS 06/25/21 04/26/24 History (Euthyrox) lisinopril 40 mg tablet 40 mg PO DAILY 06/25/21 04/26/24 History multivitamin 1 tab PO DAILY 02/20/23 04/26/24 History acetaminophen 500 mg tablet 500 mg PO Q6H PRN 04/26/24 04/26/24 History (Tylenol Extra Strength) tramadol 50 mg tablet 50 mg PO BID PRN 04/26/24 04/26/24 History Have you fallen in the past year?: No PFSH Medical History Wears dentures Wears glasses Post-menopausal Thyroid disease High cholesterol History of ulceration Non-smoker Hx of bladder infections Right carpal tunnel syndrome History of bleeding ulcers HTN (hypertension) Hypothyroid Surgical History History of hernia repair Social History Smoking Status: Never smoker HPI LUMBAR SPINE Details: This documentation accurately reflects the service provided and the decisions made by me, Dr. Dao Webber MD 04/26/24 1227. Part of today???s visit was documented by Zhanna Meza LPN, acting as scribe. RIANA OLIVIER is a very pleasant 84 year old F here today for initial evaluation of lumbar spine pain. She was referred by Dr. Pollard. She pain that radiates into her right leg. Denies back pain. She states the right leg pain is the most bothersome. She does experience numbness and tingling into her right leg. Her right leg does feel weak at times. She has to use a cart to walk when shopping, This has been an ongoing issue for the last 6 months. She has had some falls in the past but she doesn't recall any particular injury. Says that her L leg has buckled on her before. She denies pain in her left leg. She has done PT. Therapy helped with stretching and strengthening. She has been seeing Dr. Pollard in pain management but has not had any injections yet, only oral pain medication. She has never seen a chiropractor. Ortho Exam General General: Yes no acute distress Neurologic: Yes alert and Yes oriented x3 Spine SPINE TESTING CERVICAL THORACIC LUMBAR Musculoskeletal Strength 0=absent - 5=normal Details: Neurological exam of the lower extremities shows 5x5 power. Normal sensations across all dermatomes. No hyperreflexia. No midline or paraspinal tenderness. Coding Level of Care Code Off vis,est,level 4 Diagnoses Spondylolisthesis, lumbar region M43.16 Spinal stenosis of lumbar region with neurogenic claudication M48.062 Age-related osteoporosis without current pathological fracture M81.0 Osteoporosis type: age-related Presence of current pathological fracture: without current pathological fracture Time Spent (min) 35 Assessment and Plan Assessment and Plan (1) Spondylolisthesis, lumbar region: Status: Acute (2) Spinal stenosis of lumbar region with neurogenic claudication: Status: Acute (3) Osteoporosis: Status: Acute Qualifiers: Osteoporosis type: age-related Presence of current pathological fracture: without current pathological fracture Qualified Code(s): M81.0 - Age-related osteoporosis without current pathological fracture Orders: Orders L/S Spine Bending Flex/Ext Today M54.50 - Low back pain, unspecified Plan Obtained and reviewed xrays today with the patient. Reviewed prior MRI today as well. Since she has osteoporosis related to age. She has old compression fracture deformities at multiple levels. At L2-3 there is grade 1 spondylolisthesis with severe stenosis on MRI. I explained to her the imaging findings in detail. While she does have severe central stenosis at L2-3, her age will make her a high risk for any surgical intervention. I would like her to exhaust nonsurgical treatment prior to considering surgery. At this time, we will proceed with nonsurgical options such as spinal injections. She sees Dr. Pollard but has held off on spinal injections until she was seen today. Discussed the spinal injections could take time to improve symptoms. If in the future she continues to have progressively worsening pain and worsening balance, we will con (more content not included)... Normal [facility] Re-Evaluation - PT (1)on Re-Evaluation - PT (1) [facility] [address] [place] [address] / REEVALUATION / MEDICARE RECERTIFICATION PHYSICAL THERAPY MR#: [id number] Acct: [id number] Name: RIANA OLIVIER Rep #: [id number] : 1940 84 From: Shilpi Velasquez PT, Cert. MDT Referring Dr.: Dr. Darryl Phipps MD Status:REG RCR [facility] Re-Evaluation Intro: Dr. Darryl Phipps MD, It has been my pleasure to treat RIANA OLIVIER over the last 7 visits for T10, L1 AND L3 COMPRESSION FRACTURES. LUMBAR SPINAL STENOSIS.. Please see the progress note below for an update on the physical therapy plan of care! Subjective Subjective: PATIENT STATES SHE IS A LOT BETTER THAN SHE WAS. IT DON'T HURT MUCH AND I CAN STAND LONGER. MY WALKING IS GETTING BETTER TOO SHE STATES IF SHE SITS TOO LONG IT TAKES HER AWHILE TO GET GOING. SHE STATES SHE CAN GET MEALS AND MARRIAGE COUNSELOR AND MAKE THE BED AND DO THE DISHES BETTER BUT NOT LIKE BEFORE. DENIES ANY FALLS SINCE STARTING THERAPY. STILL REFUSING TO USE ANY ASSISTIVE DEVICES. REPORTS SHE HAS AN VALERIO'T WITH DR. WEBBER TOMORROW AND FOLLOW UP WITH DR. MEJIA NEXT WEEK. Objective Objective/Function: PATIENT REPORTS IMPROVMENT IN BACK/LEG PAIN AND ADL FUNCTION SINCE STARTING PT HOWEVER HER PAIN (ESPECIALLY HER R THIGH PAIN) IS STILL EASILY PROVOKED TO 8/10 WITH WALKING IN LITTLE 250 FEET. SHE ALSO EXHIBITS INCREASED TRUNK FLEXION DURING GAIT THAT INCREASES WITH DISTANCE AND BECOMES EXCESSIVE IN LITTLE 150 TO 200 FEET. SHE DOES NOT USE AN ASSISTIVE DEVICE AND WALKS WITH VERY SHORT MICHAEL STRIDE LENGTH AND UNSTEADY GAIT. THIS PT HAS ENCOURAGED HER TO USE AN ASSISTIVE DEVICE BUT SHE DOES NOT FEEL SHE NEEDS TO. SHE STATES SHE DOES HAVE A CANE AT HOME AND SHE PLANS TO USE IT TO GO SEE HER GRANDDAUGHTER PLAN IN THE [place] NEXT MONDAY NIGHT BUT OTHERWISE SHE DOESN'T THINK SHE NEEDS IT. PATIENT IS UNABLE TO SLS ON EITHER LE AND MORE THAN A SECOND OR TWO WITHOUT UE ASSIST. THIS PT EDUCATED HER ON HER RISK OF FALLING AND STRONGLY ENCOURAGED HER TO CONSIDER USE OF A ROLLATOR FOR BALANCE, IMRPOVED POSTURE AND PAIN RELIEF. SHE REMAINED RELUCTANT. TUG TIME TODAY IS 20.41 SEC. Sensory deficit: MICHAEL UE AND LE LIGHT TOUCH SENSATION GROSSLY INTACT AND SYMMETRICAL ROM deficit: MICHAEL HIP FLEXOR AND ABDOMINAL TIGHTNESS. Motor deficit: MICHAEL SCAPULAR AND HIP WEAKNESS 4/5. Lumbar mvmt loss: NT Core strength: POOR Palpation: PATIENT DENIES TENDERNESS WITH THORACIC PALPATION BUT REPORTS TENDERNESS WITH PALPATION OF UPPER LUMBAR SPINE AND MICHAEL LUMBAR PARASPINALS R > L. DISCUSSED HOLDING PT WITH PATIENT UNTIL SHE SEES DR. WEBBER AND/OR DR. MEJIA - PATIENT AGREEABLE. Plan Plan Plan: HOLD PT UNTIL CONSULT WITH DR. WEBBER TOMORROW. RESUME PT IF NEW ORDERS REC'D FROM DR. WEBBER AND/OR DR. MEJIA. *Neutral* Spine Core Stability Exercises and Michael LE Hip Flexor, Hamstring and Calf Stretching to help reduce stress to the Lumbar Spine with all Daily Activities. Michael UE and LE Strengthening including scapular and postural strengthening. Instruction in Proper Posture Control, Body Mechanics, and Appropriate Activity Modifications. HEP Instruction. Balance/Gait/Function al tests Balance/Special Test Scores Oswestry Low Back Score: 24 Goals Goals Goal 1:: DECREASE C/O LOW BACK PAIN BY AT LEAST 50% TO EASE ADL'S. Goal Time Frame: 4-6 Weeks Goal Progress: Progressing Goal 2:: PATIENT WILL BE ABLE TO WALK FOR AT LEAST 10 MINUTES WITHOUT AD AND WITHOUT AGGREVATION OF SYMPTOMS IN ORDER TO PERFORM ADL'S AND IADL'S. Goal Time Frame: 4-6 Weeks Goal Progress: Progressing Goal 3:: PATIENT WILL SCORE AT LEAST 5 POINTS BETTER ON BACK OSWESTRY QUESTIONNAIRE Goal Time Frame: 4-6 Weeks Goal Progress: Not Progressing Goal 4:: PATIENT WILL BE INDEP WITH A HEP FOR CONTINUED IMPROVEMENT ONCE FORMAL PHYSICAL THERAPY CONCLUDES. Goal Time Frame: 4-6 Weeks Goal Progress: Progressing Anticipated Interventions Anticipated Interventions Patient/Client Instruction: Educate patient on: Condition, Plan of Care and Risk Factors For the Purpose of:: To improve self management Therapeutic Exercise to Include: Strength training, Body mechanics, Postural training, Flexibilty training, Gait and locomotor training, Neuromotor development, Dynamic Lumbar Stabilization and Scapular Strength/Stabilizatio n For the Purpose of:: To decrease pain, To improve muscle performance and motor function, To improve ability to perform ADL's, To increase tolerance to activity/condition/po sition, To improve ability of physical actions for home/community/work/l eisure, To improve gait and locomotor functions, To increase flexibility/ROM, To improve self management and To improve ability to perform tasks related to life management Thermo therapy (hot pack): Yes For the Purpose of:: To dec (more content not included)... Normal [facility] Dexa Bone Density Studyon Dexa Bone Density Study [facility] Imaging Services [address] [place] [address] Dexa Bone Density Study MR#: [id number] Acct: [id number] Name: RIANA OLIVIER Rep #: [id number] : 1940 F 84 From: Lazarus steele MD PCP: Dr. Darryl Phipps MD Status: [facility] Study: Dexa Bone Density Study Date of Exam: 04/17/24 Exam# [id number] Ordering Dr: Darryl Phipps MD [id number] STUDY: DUAL ENERGY X-RAY ABSORPTIOMETRY / DXA REASON FOR EXAM: Female, 84 years old. [id number] TECHNIQUE: Bone Mineral Density (BMD) measurements of lumbar spine and bilateral hips were obtained. COMPARISON: Comparison is made with prior study dated September 10, 2013. FINDINGS: Lumbar Spine (L1-L4): g/cm2 (0.756) / T-score (-2.6) / Z-score (0.2) Findings are suggestive of osteoporosis with a high fracture risk. Left Femur Total: g/cm2 (0.670) / T-score (-2.2) / Z-score (0.1) Left Femoral Neck: g/cm2 (0.592) / T-score (-2.3) / Z-score (0.2) Right Femur Total: g/cm2 (0.629) / T-score (-2.6) / Z-score (-0.2) Right Femoral Neck: g/cm2 (0.560) / T-score (-2.6) / Z-score (-0.1) The T-Scores on the most recent prior examination were: Lumbar Spine (L1-L4): There has been worsening of bone density since the previous examination. Left Femur Total: which represents a worsening of 15.7%. Right Femur Total: which represents a worsening of 19.8%. BD/Dexa Bone Density Study IMPRESSION: The patient is considered osteoporotic as outlined below according to World [place] Organization (WHO) criteria with a high fracture risk. There has been worsening of bone density since the previous examination. Reference Information: The T-score is the number of standard deviations above or below the standard which is normal for young adults at their peak bone mineral density. The World Health Organization (WHO) interprets the T-scores as follows: Above -1 Normal bone density Between -1 and -2.5 Osteopenia Equal to / or below -2.5 Osteoporosis As a practical clinical guideline, osteopenia may be graded as follows: Mild -1 through -1.5 Moderate -1.6 through -2.0 Severe -2.1 through -2.4 The Z-score is the number of standard deviations above or below age-matched controls. A Z-score of less than -1.5 would be considered abnormal. References: 1. NIH Osteoporosis and Related Bone Diseases www osteo.org 2. International Society for Clinical Densitometry www iscd.org 3. National Osteoporosis Foundation www nof.org Electronically Signed: Lazarus Costa MD at 11:24 EDT , CC: Dr. Darryl Phipps MD Customer Service Coordinator: Signed Normal [facility] Inital Evaluation (1) - PTon 04-09-2024 Inital Evaluation (1) - PT [facility] Physical Therapy [facility] [address] [place] [address] / REHABILITATION SERVICES INITIAL EVALUATION MR#: [id number] Acct: [id number] Name: RIANA OLIVIER Rep #: [id number] : 1940 84 From: Shilpi Velasquez PT, Cert. MDT Referring Dr.: Dr. Darryl Phipps MD Status: REG R Insurance: [facility] SELF PAY INSURANCE Patient's Visit Information Visit Information Visit Information: RIANA OLIVIER is a 84 year old F referred to Physical Therapy by Dr. Darryl Phipps MD with a diagnosis of T10, L1 AND L3 COMPRESSION FRACTURES. LUMBAR SPINAL STENOSIS.. Date of Evaluation: 04/05/24 Physical Therapist: Shilpi Velasquez PT, Cert MDT Visit Plan Frequency: 2-3x /Week Duration: 4-6 Weeks Plan: *Neutral* Spine Core Stability Exercises and Michael LE Hip Flexor, Hamstring and Calf Stretching to help reduce stress to the Lumbar Spine with all Daily Activities. Michael UE and LE Strengthening including scapular and postural strengthening. Instruction in Proper Posture Control, Body Mechanics, and Appropriate Activity Modifications. HEP Instruction. Subjective Subjective: Work/Leisure: RETIRED. DRIVES. LIVES WITH - RELATIVELY GOOD HEALTH. Present symptoms: LOW BACK PAIN. MICHAEL THIGH PAIN R>L Present since: ABOUT 2 YEARS AGO Pain Scale: WORST 9/10, LEAST 0/10 Currently: 5/10 Is it getting better, worse or staying the same: GETTING A LITTLE BIT BETTER SINCE STARTING THE PILLS THIS WEEK (TRAMADOL - DR. POLLARD) Commenced as a result of: I FELL A COUPLE TIMES Symptoms at onset: MORE PAIN R THIGH Worse: SITTING, STANDING, WALKING, WEEDING - IT HURTS BUT I CAN'T STAND TO SEE THE WEEDS, BENDING, HOUSEWORK, MAKING BEDS PUTS ME IN TEARS, CAN HARDLY STAND TO DO DISHES AND PEEL POTATOES, Better: LYING DOWN, TRAMADOL Disturbed sleep: NO Previous history/Previous treatment: UNREMARKABLE Treatment this episode: PUTTING BLANKETS UP OVER HEAD USING A STEP LADDER. WHEN STEPPING DOWN FELL BACKWARDS AND LANDED ON BACK. ALSO WAS WORKING IN [employer] AND [employer] GOT OUT AND KNOCKED HER OVER. STATES DR. PHIPPS GAVE HER SOME PAIN SHOTS AND DR. POLLARD GAVE HER SOME PAIN PILLS (TRAMADOL) AND THE PAIN SHOTS AND PILLS ARE HELPING. Coughing/sneezing/str aining: POSITIVE FOR INCREASED PAIN. FOLLOW UP PENDING WITH DR. POLLARD AGAIN NEXT MONDAY. PATIENT REPORTS DR. POLLARD KNOWS DR. PHIPPS ORDERED PHYSICAL THERAPY AND THAT SHE HAS PT TODAY. Gait: TIME AND DISTANCE LIMITED BY PAIN. HAVING TROUBLE STANDING UP STRAIGHT. Bowel or Bladder Dysfunction: NO Accidents: NO Unexplained weight loss: NO Imagin03/25/24 SPINE MRI: 1. Chronic L1 compression fracture correlating with the prior CT examination. Minimal edema at the posterior superior corner of the vertebral body. Mild retropulsion of the posterior cortex and mild associated spinal canal stenosis. 2. Multilevel degenerative changes in the spine worse at L2-L3 where there is severe spinal canal stenosis with impingement of the intrathecal nerve roots. Furthermore, impingement of the left L2, bilateral, and right L4 nerve roots. 3. Grade 1 degenerative anterolisthesis of L2 upon L3 secondary to cirrhosis. L2 is mildly subsided into the superior endplate of L3. 4. Partially visualized large hiatal hernia. 5. Partially visualized degenerative changes throughout the cervical and thoracic spine. Chronic appearing T10 compression fracture. 6. Chronic fracture at the superior endplate of L3, new since the prior CT examination. RECOMMENDATIONS: Spine surgery consultation. PMH/Recent major surgery: HTN, HYPOTHYROIDISM OTHER: PATIENT REPORTS SHE HAS BEEN HAVING A LOT OF PAIN FOR ABOUT 6 MON[address] MORE. WHEN DR. PHIPPS GAVE HER THE SHOTS FOR PAIN A FEW WEEKS AGO IT HELPED BUT THEY STARTED TO WEAR OFF. STARTED TRA MADOL YESTERDAY AND NOT IN MUCH PAIN TODAY YESTERDAY. Objective Objective: Sitting/Standing Posture: INCREASED KYPHOSIS AND SCOLIOTIC Active Correction of posture: UNABLE TO CORRECT AND ATTEMPTS INCREASE PAIN. Other Observations: PATIENT MOVES impulsively AT TIMES AND TRIES TO PUSH THROUGH THE PAIN DESPITE CUES TO STOP. SHE AMBULATES INDEP'LY INTO PT WITH SLOW ANTALGIC GAIT PATTERN WITH INCREASED TRUNK FLEXION AND GOES INTO GREATER TRUNK FLEXION THE FURTHER SHE WALKS. Sensory deficit: MICHAEL UE AND LE LIGHT TOUCH SENSATION GROSSLY INTACT AND SYMMETRICAL ROM deficit: MICHAEL HIP FLEXOR AND ABDOMINAL TIGHTNESS. Motor deficit: MICHAEL SCAPULAR AND HIP WEAKNESS 4/5. Lumbar mvmt loss: flex - MIN ext - LENIN R SG - LENIN L SG - LENIN MICHAEL THORACIC ROT - MOD PATIENT C/O BACK PAIN WITH SPINE ROM TESTING ALL PLANES. AGAIN, CAUTIONED PATIENT TO ONLY MOVE IN COMFORTABLE ROM DURING TESTING BUT TENDS TO FORCE THROUGH PAIN ANYWAY. Core strength: POOR Palpation: PATIENT DENIES TENDERNESS WITH THORACIC PALPATION BUT R (more content not included)... Normal [facility] Spine Lumbar (Routine)on Spine Lumbar (Routine) [facility] Imaging Services [address] [place], [place] [id number] Spine Lumbar (Routine) MR#: [id number] Acct: [id number] Name: RIANA OLIVIER Rep #: [id number] : 1940 F 84 From: Jamie hernandez DO PCP: Dr. Darryl Phipps MD Status: REG CLI Study: Spine Lumbar (Routine) Date of Exam: 03/25/24 Exam# [id number] Ordering Dr: Darryl Phipps MD [id number] EXAM: MR LUMBAR SPINE WITHOUT INTRAVENOUS CONTRAST CLINICAL INDICATION: LUMBAR RADICULOPATHY, COMPRESSION FX OF L3 VERTEBRA TECHNIQUE: Multiplanar and multisequence MR images of the lumbar spine without intravenous contrast. COMPARISON: CT abdomen and pelvis, 06/25/2021 and lumbar spine radiographs, 02/28/2024. FINDINGS: VERTEBRAE: Chronic L1 compression fracture correlating with the prior CT examination. Minimal edema at the posterior superior corner of the vertebral body. Mild retropulsion of the posterior cortex and mild associated spinal canal stenosis. Multilevel facet arthrosis and endplate osteophytosis. No spondylolysis. Grade 1 degenerative anterolisthesis of L2 upon L3 secondary to cirrhosis. L2 is mildly subsided into the superior endplate of L3. Partially visualized degenerative changes throughout the cervical and thoracic spine. Chronic appearing T10 compression fracture. Mild compression deformity of L3. The superior endplate with less than 25% vertebral body height loss. No significant retropulsion of the posterior cortex and no involvement of the posterior elements. No significant edema to suggest that this is an acute injury. SPINAL CORD: No significant abnormality. Normal position and signal intensity of the conus medullaris. SOFT TISSUES: There is atrophic change of the erector spinae muscles. Atrophy of the right psoas muscle is also present. KIDNEYS AND URETERS: There is a right renal cyst for which no follow-up is indicated. DISCS/SPINAL CANAL/NEURAL FORAMINA: T12-L1: Mild retropulsion of the posterior cortex of L1. Facet arthrosis. Disc bulge. Mild to moderate spinal canal stenosis and moderate bilateral neural foraminal narrowing. L1-L2: Disc bulge and mild retropulsion of the posterior cortex of L1. Mild bilateral facet arthrosis. Mild spinal canal stenosis and moderate bilateral neural foraminal narrowing. L2-L3: Severe spinal canal stenosis. Anterolisthesis of L2 on L3. Disc bulge/pseudobulge with superimposed left central to foraminal disc herniation and severe bilateral facet arthrosis. Effacement of CSF from the thecal sac with impingement of the intrathecal nerve roots. The nerve roots are disorganized above the disc level within the thecal sac. There is impingement of the bilateral traversing L3 nerve roots and there is impingement of the left foraminal L2 nerve root. L3-L4: Disc bulge with superimposed right central disc herniation. Moderate facet arthrosis. Moderate right and mild left neural foraminal narrowing. Moderate to severe spinal canal stenosis. Right L3 and right L4 nerve root impingement. L4-L5: Disc bulge with superimposed central disc herniation and moderate bilateral facet arthrosis. Mild bilateral neural foraminal narrowing and mild spinal canal stenosis. Abutment without definite impingement of the bilateral L5 nerve roots. L5-S1: Disc bulge and mild bilateral arthrosis. Right foraminal to extraforaminal disc herniation. Mild to moderate right neural foraminal narrowing and mild spinal canal stenosis. No distinct evidence of nerve root impingement. OTHER FINDINGS: Partially visualized large hiatal hernia. MRI/Spine Lumbar (Routine) IMPRESSION: 1. Chronic L1 compression fracture correlating with the prior CT examination. Minimal edema at the posterior superior corner of the vertebral body. Mild retropulsion of the posterior cortex and mild associated spinal canal stenosis. 2. Multilevel degenerative changes in the spine worse at L2-L3 where there is severe spinal canal stenosis with impingement of the intrathecal nerve roots. Furthermore, impingement of the left L2, bilateral, and right L4 nerve roots. 3. Grade 1 degenerative anterolisthesis of L2 upon L3 secondary to cirrhosis. L2 is mildly subsided into the superior endplate of L3. 4. Partially visualized large hiatal hernia. 5. Partially visualized degenerative changes throughout the cervical and thoracic spine. Chronic appearing T10 compression fracture. 6. Chronic fracture at the superior endplate of L3, new since the prior CT examination. RECOMMENDATIONS: Spine surgery consultation. Electronically Signed: Jamie Mcgraw, at 11:54 EDT , CC: Dr. Darryl Phipps MD Transcriptionis (more content not included)... Normal [facility] CBC W/Diff, Automatedon 02-09 Absolute Lymph 1.06 X10 3/uL Normal 0.83-4.51 [facility] Comment on above: Performed By: #### L 506.1000, L500.4050, L501.9520, L100.0100 #### [facility] [address] [place], [address] Absolute Neut 3.2 X10 3/uL Normal 2.0-7.7 [facility] Comment on above: Performed By: #### L 506.1000, L500.4050, L501.9520, L100.0100 #### [facility] [address] [place], [address] Basophils/100 WBC (Bld) 1.8 % High 0-1 [facility] Comment on above: Performed By: #### L 506.1000, L500.4050, L501.9520, L100.0100 #### [facility] [address] [place], [address] Eosinophils/100 WBC (Bld) 1.2 % Normal 0-5 [facility] Comment on above: Performed By: #### L 506.1000, L500.4050, L501.9520, L100.0100 #### [facility] [address] [place], [address] Erythrocyte distribution width (RBC) [Ratio] 15.1 % High 11.6-14.6 [facility] Comment on above: Performed By: #### L 506.1000, L500.4050, L501.9520, L100.0100 #### [facility] [address] [place], [address] Hematocrit (Bld) [Volume fraction] 39.4 % Normal 37-47 [facility] Comment on above: Performed By: #### L 506.1000, L500.4050, L501.9520, L100.0100 #### [facility] [address] [place], [address] Hemoglobin (Bld) [Mass/Vol] 12.8 g/dL Normal 12.0-15.0 [facility] Comment on above: Performed By: #### L 506.1000, L500.4050, L501.9520, L100.0100 #### [facility] [address] [place], [address] IG% 1.000 High 0.0-0.9 [facility] Comment on above: Result Comment: IG% - Immature Granulocytes (promyelocytes, myelocytes and metamyelocytes) > 1% indicates that a LEFT SHIFT is Present. Performed By: #### L 506.1000, L500.4050, L501.9520, L100.0100 #### [facility] [address] [place], [address] Lymphocytes/100 WBC (Bld) 21.0 % Normal 19-41 [facility] Comment on above: Performed By: #### L 506.1000, L500.4050, L501.9520, L100.0100 #### [facility] [address] [place], [address] MCH (RBC) [Entitic mass] 28.7 pg Normal 27.0-32.0 [facility] Comment on above: Performed By: #### L 506.1000, L500.4050, L501.9520, L100.0100 #### [facility] [address] [place], [address] MCHC (RBC) [Mass/Vol] 32.5 g/dL Normal 32-36 [facility] Comment on above: Performed By: #### L 506.1000, L500.4050, L501.9520, L100.0100 #### [facility] [address] [place], [address] MCV (RBC) [Entitic vol] 88.3 fL Normal 81-99 [facility] Comment on above: Performed By: #### L 506.1000, L500.4050, L501.9520, L100.0100 #### [facility] [address] [place], [address] Monocytes/100 WBC (Bld) 11.1 % High 0-10 [facility] Comment on above: Performed By: #### L 506.1000, L500.4050, L501.9520, L100.0100 #### [facility] [address] [place], [address] Neutrophils/100 WBC (Bld) 63.9 % Normal 47-70 [facility] Comment on above: Performed By: #### L 506.1000, L500.4050, L501.9520, L100.0100 #### [facility] [address] [place], [address] Nucleated RBC (Bld) [#/Vol] 0 10*3/uL Normal 0-5 [facility] Comment on above: Performed By: #### L 506.1000, L500.4050, L501.9520, L100.0100 #### [facility] [address] [place], [address] Platelet mean volume (Bld) [Entitic vol] 9.8 fL Normal 6.2-12.0 [facility] Comment on above: Performed By: #### L 506.1000, L500.4050, L501.9520, L100.0100 #### [facility] [address] [place], [address] Platelets (Bld) [#/Vol] 337 10*3/uL Normal 150-450 [facility] Comment on above: Performed By: #### L 506.1000, L500.4050, L501.9520, L100.0100 #### [facility] [address] [place], [address] RBC (Bld) [#/Vol] 4.46 10*6/uL Normal 4.2-5.4 [facility] Comment on above: Performed By: #### L 506.1000, L500.4050, L501.9520, L100.0100 #### [facility] [address] [place], [address] RDW SD 48.8 fl High 35.1-43.9 [facility] Comment on above: Performed By: #### L 506.1000, L500.4050, L501.9520, L100.0100 #### [facility] [address] [place], [address] WBC (Bld) [#/Vol] 5.1 10*3/uL Normal 4.4-11.0 [facility] Comment on above: Performed By: #### L 506.1000, L500.4050, L501.9520, L100.0100 #### [facility] [address] [place], [address] Comprehensive Metabolic Prof [facility] 02-28-2024 Albumin [Mass/Vol] 4.0 g/dL Normal 3.2-5.0 [facility] Comment on above: Performed By: #### L 506.1000, L500.4050, L501.9520, L100.0100 #### [facility] [address] [place], [address] Albumin/Globulin [Mass ratio] 1.3 {ratio} Normal 0.9-2.4 [facility] Comment on above: Performed By: #### L 506.1000, L500.4050, L501.9520, L100.0100 #### [facility] [address] [place], [address] ALK P 80 U/L Normal 45-117 [facility] Comment on above: Performed By: #### L 506.1000, L500.4050, L501.9520, L100.0100 #### [facility] [address] [place], [address] ALT [Catalytic activity/Vol] 14 U/L Normal 13-56 [facility] Comment on above: Performed By: #### L 506.1000, L500.4050, L501.9520, L100.0100 #### [facility] [address] [place], [address] AST [Catalytic activity/Vol] 12 U/L Low 15-37 [facility] Comment on above: Performed By: #### L 506.1000, L500.4050, L501.9520, L100.0100 #### [facility] [address] [place], [address] Bilirubin [Mass/Vol] 1.20 mg/dL High 0.20-1.00 [facility] Comment on above: Result Comment: For patients on eltrombopag therapy, use of Dimension [place] TBIL is not recommended. Performed By: #### L 506.1000, L500.4050, L501.9520, L100.0100 #### [facility] [address] [place], [address] BUN/CRE 22.0 RATIO High 10-20 [facility] Comment on above: Performed By: #### L 506.1000, L500.4050, L501.9520, L100.0100 #### [facility] [address] [place], [address] CA,Total 10.1 mg/dL Normal 8.5-10.1 [facility] Comment on above: Performed By: #### L 506.1000, L500.4050, L501.9520, L100.0100 #### [facility] [address] [place], [address] Chloride [Moles/Vol] 108 mmol/L High 98-107 [facility] Comment on above: Performed By: #### L 506.1000, L500.4050, L501.9520, L100.0100 #### [facility] [address] [place], [address] CO2 [Moles/Vol] 25.0 mmol/L Normal 21.0-32.0 [facility] Comment on above: Performed By: #### L 506.1000, L500.4050, L501.9520, L100.0100 #### [facility] [address] [place], [address] Creatinine [Mass/Vol] 0.86 mg/dL Normal 0.55-1.02 [facility] Comment on above: Result Comment: The validity of the calculated GFR GFRAA in patients over 70 years has not been determined. Clinical correlation is essential. Performed By: #### L 506.1000, L500.4050, L501.9520, L100.0100 #### [facility] [address] [place], [address] EST GFR - AA 80 mL/min Normal >60 [facility] Comment on above: Result Comment: Afri can Nigerian GFR Calc Performed By: #### L 506.1000, L500.4050, L501.9520, L100.0100 #### [facility] [address] [place], [address] GAP 3 Low 5-15 [facility] Comment on above: Performed By: #### L 506.1000, L500.4050, L501.9520, L100.0100 #### [facility] [address] [place], [address] GFR/1.73 sq M.predicted among non-blacks MDRD (S/P/Bld) [Vol rate/Area] 66 mL/min/{1.73_m2} Normal >60 [facility] Comment on above: Result Comment: Non- GFR Calc Performed By: #### L 506.1000, L500.4050, L501.9520, L100.0100 #### [facility] [address] [place], [address] Globulin (S) [Mass/Vol] 3.1 g/dL Normal 2.2-4.2 [facility] Comment on above: Performed By: #### L 506.1000, L500.4050, L501.9520, L100.0100 #### [facility] [address] [place], [address] Glucose [Mass/Vol] 105 mg/dL Normal 74-106 [facility] Comment on above: Result Comment: Fast ing Glucose result from 100 to 125 mg/dL suggests IMPAIRED HOMEOSTASIS per A.D.A. criteria. Performed By: #### L 506.1000, L500.4050, L501.9520, L100.0100 #### [facility] [address] [place], [address] Potassium [Moles/Vol] 4.2 mmol/L Normal 3.5-5.1 [facility] Comment on above: Performed By: #### L 506.1000, L500.4050, L501.9520, L100.0100 #### [facility] [address] [place], [address] Sodium [Moles/Vol] 136 mmol/L Normal 136-145 [facility] Comment on above: Performed By: #### L 506.1000, L500.4050, L501.9520, L100.0100 #### [facility] [address] [place], [address] T PROT 7.1 g/dL Normal 6.4-8.2 [facility] Comment on above: Performed By: #### L 506.1000, L500.4050, L501.9520, L100.0100 #### [facility] [address] [place], [address] Urea nitrogen [Mass/Vol] 19 mg/dL High 7-18 [facility] Comment on above: Performed By: #### L 506.1000, L500.4050, L501.9520, L100.0100 #### [facility] [address] [place], [address] L/S Spine Min 4 Viewson 02-09 L/S Spine Min 4 Views [facility] Imaging Services [address] [place] [address] L/S Spine Min 4 Views MR#: [id number] Acct: [id number] Name: RIANA OLIVIER Rep #: [id number] : 1940 F 83 From: Jamie hernandez DO PCP: Dr. Darryl Phipps MD Status: REG CLI Study: L/S Spine Min 4 Views Date of Exam: 02/28/24 Exam# [id number] Ordering Dr: Darryl Phipps MD [id number] EXAM: XR LUMBOSACRAL SPINE, 4 OR 5 VIEWS CLINICAL INDICATION: SCIATICA R TECHNIQUE: Frontal, lateral and bilateral oblique views of the lumbar spine. COMPARISON: Lumbar spine radiographs, 06/28/2024; CT abdomen and pelvis, 06/25/2021. FINDINGS: VERTEBRAE: L1 compression fracture with mild retropulsion of the posterior cortex similar in appearance to the prior CT examination. Multilevel facet arthrosis and endplate osteophytosis. T10 compression deformity is similar to the prior CT examination. Compression deformity of L3 partially assessed would be new compared to the prior CT examination. [place] right thoracolumbar curvature. No spondylolisthesis. DISC SPACES: Multilevel intervertebral disc height loss. GASTROINTESTINAL TRACT: Moderate colonic stool and gas. Included bowel gas pattern is non-obstructive. RAD/L/S Spine Min 4 Views IMPRESSION: 1. Compression deformity of L3 partially assessed would be new compared to the prior CT examination. Consider follow-up MRI or CT. 2. L1 compression fracture with mild retropulsion of the posterior cortex similar in appearance to the prior CT examination. 3. T10 compression deformity is similar to the prior CT examination. 4. [place] right thoracolumbar curvature. Electronically Signed: Jamie Mcgraw DO at 21:29 EDT , CC: Dr. Darryl Phipps MD Customer Service Coordinator: Signed Normal [facility] Thyroid Stim Hormone (TSH)on 02-28-2024 TSH 3.15 uIU/mL Normal 0.358-3.74 [facility] Comment on above: Performed By: #### L 506.1000, [id number], [id number], L100.0100 #### [facility] [address] [place], [address] Vitamin D,25 Hydroxyon 02-27 Vitamin D 25-OH 46.9 ng/mL Normal [facility] Comment on above: Result Comment: Vann[place] min D 25(OH) Status Range Deficiency <20 ng/mL (50nmol/L) Insufficiency 20 - 30 ng/mL (50 - 75 nmol/L) Sufficiency 30 - 100 ng/mL (75 - 250 nmol/L) Toxicity >100 ng/mL (>250 nmol/L) Performed By: #### L 506.1000, [id number], [id number], L100.0100 #### [facility] [address] [place], [address] Absolute lymphocyte countOrd ered By: Darryl Phipps on 08-29-2023 Lymphocytes Auto (Unsp spec) [#/Vol] 0.97 10*3/uL 0.83-4.51 [facility] Basophil percentageOrdered B y: Darryl Phipps on 08-29-2023 Basophils/100 WBC (Bld) 1.5 % 0-1 [facility] Bilirubin [Mass/Vol] 1.00 mg/dL 0.20-1.00 [facility] Comment on above: For patients on eltr ombopag therapy, use of Dimension [place] TBIL is not recommended. Chloride [Moles/Vol] 105 mmol/L 98-107 [facility] Eosinophils/100 WBC (Bld) 1.9 % 0-5 [facility] Glucose [Mass/Vol] 98 mg/dL 74-106 [facility] Neutrophils (Bld) [#/Vol] 3.4 10*3/uL 2.0-7.7 [facility] Neutrophils/100 WBC (Bld) 65.9 % 47-70 [facility] Potassium [Moles/Vol] 4.5 mmol/L 3.5-5.1 [facility] Protein [Mass/Vol] 6.9 g/dL 6.4-8.2 [facility] Sodium [Moles/Vol] 138 mmol/L 136-145 [facility] WBC (Bld) [#/Vol] 5.2 10*3/uL 4.4-11.0 [facility] Blood erythrocytes count (nu mber/volume)Ordered By: Darryl Phipps on 08-29-2023 RBC (Bld) [#/Vol] 4.16 10*6/uL 4.2-5.4 [facility] Blood hemoglobin measurement (mass/volume)Ordered By: Darryl Phipps on 08-29-2023 Hemoglobin (Bld) [Mass/Vol] 12.4 g/dL 12.0-15.0 [facility] Blood lymphocytes/100 leukoc ytesOrdered By: Darryl Phipps on 08-29-2023 Lymphocytes/100 WBC (Bld) 18.7 % 19-41 [facility] Blood monocytes/100 leukocyt esOrdered By: Darryl Jared on 08-29-2023 Monocytes/100 WBC (Bld) 11.4 % 0-10 [facility] Blood platelet mean volumeOr dered By: [facility] on 08-29-2023 Platelet mean volume (Bld) [Entitic vol] 9.7 fL 6.2-12.0 [facility] Determination of erythrocyte mean corpuscular volume (MCV)Ordered By: Darryl Jared on 08-29-2023 MCV (RBC) [Entitic vol] 92.5 fL 81-99 [facility] Hematocrit Auto (Bld) [Volum e fraction]Ordered By: [facility] on 08-29-2023 Hematocrit (Bld) [Volume fraction] 38.5 % 37-47 [facility] - Chemistry and C hemistry - challengeOrdered By: [facility] on 08-29-2023 ALP [Catalytic activity/Vol] 66 U/L 45-117 [facility] ALT [Catalytic activity/Vol] 13 U/L 13-56 [facility] CO2 [Moles/Vol] 27.0 mmol/L 21.0-32.0 [facility] Globulin (S) [Mass/Vol] 2.9 g/dL 2.2-4.2 [facility] Urea nitrogen/Creatinine [Mass ratio] 19.3 mg/mg 10-20 [facility] - Hematology and Cell countsOrdered By: [facility] on 08-29-2023 Erythrocyte distribution width (RBC) [Entitic vol] 47.3 fL 35.1-43.9 [facility] Erythrocyte distribution width (RBC) [Ratio] 13.9 % 11.6-14.6 [facility] Immature granulocytes/100 WBC (Bld) 0.600 % 0.0-0.9 [facility] Comment on above: IG% - Immature Granu locytes (promyelocytes, myelocytes and metamyelocytes) > 1% indicates that a LEFT SHIFT is Present. MCH (RBC) [Entitic mass] 29.8 pg 27.0-32.0 [facility] Nucleated RBC/100 WBC (Bld) [Ratio] 0 % 0-5 [facility] MCHC Auto (RBC) [Mass/Vol]Or dered By: Darryl Phipps on 08-29-2023 MCHC (RBC) [Mass/Vol] 32.2 g/dL 32-36 [facility] No Panel InformationOrdered By: Darryl Phipps on 08-29-2023 Estimated GFR (MDRD) Amer 78 mL/min >60 [facility] Comment on above: GFR Calc Estimated GFR (MDRD) Non-Af Amer 65 mL/min >60 [facility] Comment on above: Non- GFR Calc Thyroid Stimulating Hormone (TSH) 2.60 uIU/mL 0.358-3.74 [facility] Vitamin D 25-Hydroxy 79.5 ng/mL [facility] Comment on above: Vitamin D 25(OH) Sta tus Range Deficiency <20 ng/mL (50nmol/L) Insufficiency 20 - 30 ng/mL (50 - 75 nmol/L) Sufficiency 30 - 100 ng/mL (75 - 250 nmol/L) Toxicity >100 ng/mL (>250 nmol/L) Platelets bldOrdered By: Darryl Phipps on 08-29-2023 Platelets (Bld) [#/Vol] 326 10*3/uL 150-450 [facility] Serum or plasma albumin katie urement (mass/volume)Ordered By: Darryl Phipps on 08-29-2023 Albumin [Mass/Vol] 4.0 g/dL 3.2-5.0 [facility] Serum or plasma albumin/glob ulin mass ratioOrdered By: Darryl Phipps on 08-29-2023 Albumin/Globulin [Mass ratio] 1.4 {ratio} 0.9-2.4 [facility] Serum or plasma calcium katie urement (mass/volume)Ordered By: Darryl Phipps on 08-29-2023 Calcium [Mass/Vol] 9.4 mg/dL 8.5-10.1 [facility] Serum or plasma creatinine m easurement (mass/volume)Ordered By: Darryl Phipps on 08-29-2023 Creatinine [Mass/Vol] 0.88 mg/dL 0.55-1.02 [facility] Comment on above: The validity of the calculated GFR & GFRAA in patients over 70 years has not been determined. Clinical correlation is essential. Serum or plasma urea nitroge n measurement (mass/volume)Ordered By: Darryl Phipps on 08-29-2023 Urea nitrogen [Mass/Vol] 17 mg/dL 7-18 [facility] Thin prep Papanicolaou smear with manual screeningOrdered By: Darryl Phipps on 08-29-2023 Thin prep Papanicolaou smear with manual screening 12 U/L 15-37 [facility] Thin prep Papanicolaou smear with manual screening 6 5-15 [facility] Absolute lymphocyte countOrd ered By: Dr. Phipps on 02-14-2023 Lymphocytes Auto (Unsp spec) [#/Vol] 1.10 10*3/uL 0.83-4.51 [facility] Basophil percentageOrdered B y: Dr. Phipps on 02-14-2023 Basophils/100 WBC (Bld) 1.5 % 0-1 [facility] Bilirubin [Mass/Vol] 1.00 mg/dL 0.20-1.00 [facility] Comment on above: For patients on eltr ombopag therapy, use of Dimension [place] TBIL is not recommended. Chloride [Moles/Vol] 106 mmol/L 98-107 [facility] Eosinophils/100 WBC (Bld) 1.5 % 0-5 [facility] Glucose [Mass/Vol] 104 mg/dL 74-106 [facility] Comment on above: Fasting Glucose resu lt from 100 to 125 mg/dL suggests IMPAIRED HOMEOSTASIS per A.D.A. criteria. Neutrophils (Bld) [#/Vol] 3.5 10*3/uL 2.0-7.7 [facility] Neutrophils/100 WBC (Bld) 66.4 % 47-70 [facility] Potassium [Moles/Vol] 4.3 mmol/L 3.5-5.1 [facility] Protein [Mass/Vol] 7.2 g/dL 6.4-8.2 [facility] Sodium [Moles/Vol] 138 mmol/L 136-145 [facility] WBC (Bld) [#/Vol] 5.3 10*3/uL 4.4-11.0 [facility] Blood erythrocytes count (nu mber/volume)Ordered By: Dr. Phipps on 02-14-2023 RBC (Bld) [#/Vol] 4.80 10*6/uL 4.2-5.4 [facility] Blood hemoglobin measurement (mass/volume)Ordered By: Dr. Phipps on 02-14-2023 Hemoglobin (Bld) [Mass/Vol] 13.8 g/dL 12.0-15.0 [facility] Blood lymphocytes/100 leukoc ytesOrdered By: Dr. Phipps on 02-14-2023 Lymphocytes/100 WBC (Bld) 20.9 % 19-41 [facility] Blood monocytes/100 leukocyt esOrdered By: Dr. Phipps on 02-14-2023 Monocytes/100 WBC (Bld) 9.1 % 0-10 [facility] Blood platelet mean volumeOr dered By: Dr. Phipps on 02-14-2023 Platelet mean volume (Bld) [Entitic vol] 9.8 fL 6.2-12.0 [facility] Determination of erythrocyte mean corpuscular volume (MCV)Ordered By: Dr. Phipps on 02-14-2023 MCV (RBC) [Entitic vol] 90.8 fL 81-99 [facility] Hematocrit Auto (Bld) [Volum e fraction]Ordered By: Dr. Phipps on 02-14-2023 Hematocrit (Bld) [Volume fraction] 43.6 % 37-47 [facility] - Chemistry and C hemistry - challengeOrdered By: Dr. Phipps on 02-14-2023 ALP [Catalytic activity/Vol] 94 U/L 45-117 [facility] ALT [Catalytic activity/Vol] 14 U/L 13-56 [facility] CO2 [Moles/Vol] 25.0 mmol/L 21.0-32.0 [facility] Globulin (S) [Mass/Vol] 3.3 g/dL 2.2-4.2 [facility] Urea nitrogen/Creatinine [Mass ratio] 17.3 mg/mg 10-20 [facility] - Hematology and Cell countsOrdered By: Dr. Phipps on 02-14-2023 Erythrocyte distribution width (RBC) [Entitic vol] 46.3 fL 35.1-43.9 [facility] Erythrocyte distribution width (RBC) [Ratio] 13.8 % 11.6-14.6 [facility] Immature granulocytes/100 WBC (Bld) 0.600 % 0.0-0.9 [facility] Comment on above: IG% - Immature Granu locytes (promyelocytes, myelocytes and metamyelocytes) > 1% indicates that a LEFT SHIFT is Present. MCH (RBC) [Entitic mass] 28.8 pg 27.0-32.0 [facility] Nucleated RBC/100 WBC (Bld) [Ratio] 0 % 0-5 [facility] MCHC Auto (RBC) [Mass/Vol]Or dered By: Dr. Phipps on 02-14-2023 MCHC (RBC) [Mass/Vol] 31.7 g/dL 32-36 [facility] No Panel InformationOrdered By: Dr. Phipps on 02-14-2023 Estimated GFR (MDRD) Amer 86 mL/min >60 [facility] Comment on above: GFR Calc Estimated GFR (MDRD) Non-Af Amer 71 mL/min >60 [facility] Comment on above: Non- GFR Calc Thyroid Stimulating Hormone (TSH) 3.27 uIU/mL 0.358-3.74 [facility] Vitamin D 25-Hydroxy 53.9 ng/mL [facility] Comment on above: Vitamin D 25(OH) Sta tus Range Deficiency <20 ng/mL (50nmol/L) Insufficiency 20 - 30 ng/mL (50 - 75 nmol/L) Sufficiency 30 - 100 ng/mL (75 - 250 nmol/L) Toxicity >100 ng/mL (>250 nmol/L) Platelets bldOrdered By: Dr. Phipps on 02-14-2023 Platelets (Bld) [#/Vol] 268 10*3/uL 150-450 [facility] Serum or plasma albumin katie urement (mass/volume)Ordered By: Dr. Phipps on 02-14-2023 Albumin [Mass/Vol] 3.9 g/dL 3.2-5.0 [facility] Serum or plasma albumin/glob ulin mass ratioOrdered By: Dr. Phipps on 02-14-2023 Albumin/Globulin [Mass ratio] 1.2 {ratio} 0.9-2.4 [facility] Serum or plasma calcium katie urement (mass/volume)Ordered By: Dr. Phipps on 02-14-2023 Calcium [Mass/Vol] 9.9 mg/dL 8.5-10.1 [facility] Serum or plasma creatinine m easurement (mass/volume)Ordered By: Dr. Phipps on 02-14-2023 Creatinine [Mass/Vol] 0.81 mg/dL 0.55-1.02 [facility] Comment on above: The validity of the calculated GFR & GFRAA in patients over 70 years has not been determined. Clinical correlation is essential. Serum or plasma urea nitroge n measurement (mass/volume)Ordered By: Dr. Phipps on 02-14-2023 Urea nitrogen [Mass/Vol] 14 mg/dL 7-18 [facility] Thin prep Papanicolaou smear with manual screeningOrdered By: Dr. Phipps on 02-14-2023 Thin prep Papanicolaou smear with manual screening 8 U/L 15-37 [facility] Thin prep Papanicolaou smear with manual screening 7 5-15 [facility] Absolute lymphocyte countOrd ered By: Dr. Phipps on 08-22-2022 Lymphocytes Auto (Unsp spec) [#/Vol] 0.97 10*3/uL 0.83-4.51 [facility] Basophil percentageOrdered B y: Dr. Phipps on 08-22-2022 Basophils/100 WBC (Bld) 1.3 % 0-1 [facility] Bilirubin [Mass/Vol] 1.10 mg/dL 0.20-1.00 [facility] Comment on above: For patients on eltr ombopag therapy, use of Dimension [place] TBIL is not recommended. Chloride [Moles/Vol] 106 mmol/L 98-107 [facility] Eosinophils/100 WBC (Bld) 1.3 % 0-5 [facility] Glucose [Mass/Vol] 96 mg/dL 74-106 [facility] Neutrophils (Bld) [#/Vol] 3.8 10*3/uL 2.0-7.7 [facility] Neutrophils/100 WBC (Bld) 69.7 % 47-70 [facility] Potassium [Moles/Vol] 4.1 mmol/L 3.5-5.1 [facility] Protein [Mass/Vol] 7.0 g/dL 6.4-8.2 [facility] Sodium [Moles/Vol] 138 mmol/L 136-145 [facility] WBC (Bld) [#/Vol] 5.5 10*3/uL 4.4-11.0 [facility] Blood erythrocytes count (nu mber/volume)Ordered By: Dr. Phipps on 08-22-2022 RBC (Bld) [#/Vol] 4.49 10*6/uL 4.2-5.4 [facility] Blood hemoglobin measurement (mass/volume)Ordered By: Dr. Phipps on 08-22-2022 Hemoglobin (Bld) [Mass/Vol] 13.1 g/dL 12.0-15.0 [facility] Blood lymphocytes/100 leukoc ytesOrdered By: Dr. Phipps on 08-22-2022 Lymphocytes/100 WBC (Bld) 17.8 % 19-41 [facility] Blood monocytes/100 leukocyt esOrdered By: Dr. Phipps on 08-22-2022 Monocytes/100 WBC (Bld) 9.5 % 0-10 [facility] Blood platelet mean volumeOr dered By: Dr. Phipps on 08-22-2022 Platelet mean volume (Bld) [Entitic vol] 10.5 fL 6.2-12.0 [facility] Determination of erythrocyte mean corpuscular volume (MCV)Ordered By: Dr. Phipps on 08-22-2022 MCV (RBC) [Entitic vol] 90.2 fL 81-99 [facility] Hematocrit Auto (Bld) [Volum e fraction]Ordered By: Dr. Phipps on 08-22-2022 Hematocrit (Bld) [Volume fraction] 40.5 % 37-47 [facility] - Chemistry and C hemistry - challengeOrdered By: Dr. Phipps on 08-22-2022 ALP [Catalytic activity/Vol] 82 U/L 45-117 [facility] ALT [Catalytic activity/Vol] 17 U/L 13-56 [facility] CO2 [Moles/Vol] 24.0 mmol/L 21.0-32.0 [facility] Globulin (S) [Mass/Vol] 3.2 g/dL 2.2-4.2 [facility] Urea nitrogen/Creatinine [Mass ratio] 21.3 mg/mg 10-20 [facility] - Hematology and Cell countsOrdered By: Dr. Phipps on 08-22-2022 Erythrocyte distribution width (RBC) [Entitic vol] 45.0 fL 35.1-43.9 [facility] Erythrocyte distribution width (RBC) [Ratio] 13.8 % 11.6-14.6 [facility] Immature granulocytes/100 WBC (Bld) 0.400 % 0.0-0.9 [facility] Comment on above: IG% - Immature Granu locytes (promyelocytes, myelocytes and metamyelocytes) > 1% indicates that a LEFT SHIFT is Present. MCH (RBC) [Entitic mass] 29.2 pg 27.0-32.0 [facility] Nucleated RBC/100 WBC (Bld) [Ratio] 0.4 % 0-5 [facility] MCHC Auto (RBC) [Mass/Vol]Or dered By: Dr. Phipps on 08-22-2022 MCHC (RBC) [Mass/Vol] 32.3 g/dL 32-36 [facility] No Panel InformationOrdered By: Dr. Phipps on 08-22-2022 Estimated GFR (MDRD) Amer 73 mL/min >60 [facility] Comment on above: GFR Calc Estimated GFR (MDRD) Non-Af Amer 60 mL/min >60 [facility] Comment on above: Non- GFR Calc Thyroid Stimulating Hormone (TSH) 3.00 uIU/mL 0.358-3.74 [facility] Vitamin D 25-Hydroxy 32.8 ng/mL [facility] Comment on above: Vitamin D 25(OH) Sta tus Range Deficiency <20 ng/mL (50nmol/L) Insufficiency 20 - 30 ng/mL (50 - 75 nmol/L) Sufficiency 30 - 100 ng/mL (75 - 250 nmol/L) Toxicity >100 ng/mL (>250 nmol/L) Platelets bldOrdered By: Dr. Phipps on 08-22-2022 Platelets (Bld) [#/Vol] 276 10*3/uL 150-450 [facility] Serum or plasma albumin katie urement (mass/volume)Ordered By: Dr. Phipps on 08-22-2022 Albumin [Mass/Vol] 3.8 g/dL 3.2-5.0 [facility] Serum or plasma albumin/glob ulin mass ratioOrdered By: Dr. Phipps on 08-22-2022 Albumin/Globulin [Mass ratio] 1.2 {ratio} 0.9-2.4 [facility] Serum or plasma calcium katie urement (mass/volume)Ordered By: Dr. Phipps on 08-22-2022 Calcium [Mass/Vol] 9.6 mg/dL 8.5-10.1 [facility] Serum or plasma creatinine m easurement (mass/volume)Ordered By: Dr. Phipps on 08-22-2022 Creatinine [Mass/Vol] 0.94 mg/dL 0.55-1.02 [facility] Comment on above: The validity of the calculated GFR & GFRAA in patients over 70 years has not been determined. Clinical correlation is essential. Serum or plasma urea nitroge n measurement (mass/volume)Ordered By: Dr. Phipps on 08-22-2022 Urea nitrogen [Mass/Vol] 20 mg/dL 7-18 [facility] Thin prep Papanicolaou smear with manual screeningOrdered By: Dr. Phipps on 08-22-2022 Thin prep Papanicolaou smear with manual screening 10 U/L 15-37 [facility] Thin prep Papanicolaou smear with manual screening 8 5-15 [facility] Absolute lymphocyte counton 02-21-2022 Lymphocytes Auto (Unsp spec) [#/Vol] 1.09 10*3/uL 0.83-4.51 [facility] Work Phone: Basophil percentageon 2021 Basophils/100 WBC (Bld) 1.3 % 0-1 [facility] Work Phone: Bilirubin [Mass/Vol] 0.80 mg/dL 0.20-1.00 [facility] Work Phone: Comment on above: For patients on eltr ombopag therapy, use of Dimension [place] TBIL is not recommended. Chloride [Moles/Vol] 107 mmol/L 98-107 [facility]: Eosinophils/100 WBC (Bld) 2.2 % 0-5 [facility] Work Phone: Glucose [Mass/Vol] 95 mg/dL 74-106 [facility] Work Phone: [phone] Neutrophils (Bld) [#/Vol] 3.7 10*3/uL 2.0-7.7 [facility] Work Phone: Neutrophils/100 WBC (Bld) 66.1 % 47-70 [facility] Work Phone: [phone] Potassium [Moles/Vol] 4.3 mmol/L 3.5-5.1 [facility]: [phone] Protein [Mass/Vol] 6.8 g/dL 6.4-8.2 [facility] Work Phone: Sodium [Moles/Vol] 138 mmol/L 136-145 [facility] Work Phone: [phone] WBC (Bld) [#/Vol] 5.6 10*3/uL 4.4-11.0 [facility] Work Phone: [phone] Blood erythrocytes count (nu mber/volume)on 02-21-2022 RBC (Bld) [#/Vol] 4.27 10*6/uL 4.2-5.4 [facility] Work Phone: Blood hemoglobin measurement (mass/volume)on 02-21-2022 Hemoglobin (Bld) [Mass/Vol] 12.4 g/dL 12.0-15.0 [facility] Work Phone: Blood lymphocytes/100 leukoc yteson 02-21-2022 Lymphocytes/100 WBC (Bld) 19.6 % 19-41 [facility] Work Phone: Blood monocytes/100 leukocyt eson 02-21-2022 Monocytes/100 WBC (Bld) 10.3 % 0-10 [facility] Work Phone: Blood platelet mean volumeon 02-21-2022 Platelet mean volume (Bld) [Entitic vol] 10.1 fL 6.2-12.0 [facility] Work Phone: Determination of erythrocyte mean corpuscular volume (MCV)on 02-21-2022 MCV (RBC) [Entitic vol] 89.9 fL 81-99 [facility] Work Phone: Hematocrit Auto (Bld) [Volum e fraction]on 02-21-2022 Hematocrit (Bld) [Volume fraction] 38.4 % 37-47 [facility] Work Phone: Laboratory - Chemistry and C hemistry - challengeon 02-21-2022 ALP [Catalytic activity/Vol] 84 U/L 45-117 [facility] Work Phone: ALT [Catalytic activity/Vol] 17 U/L 13-56 [facility] Work Phone: [phone] CO2 [Moles/Vol] 27.0 mmol/L 21.0-32.0 [facility] Work Phone: Globulin (S) [Mass/Vol] 3.2 g/dL 2.2-4.2 [facility] Work Phone: Urea nitrogen/Creatinine [Mass ratio] 19.2 mg/mg 10-20 [facility] Work Phone: Laboratory - Hematology and Cell countson 02-21-2022 Erythrocyte distribution width (RBC) [Entitic vol] 45.9 fL 35.1-43.9 [facility] Work Phone: Erythrocyte distribution width (RBC) [Ratio] 13.9 % 11.6-14.6 [facility] Work Phone: Immature granulocytes/100 WBC (Bld) 0.500 % 0.0-0.9 [facility] Work Phone: Comment on above: IG% - Immature Granu locytes (promyelocytes, myelocytes and metamyelocytes) > 1% indicates that a LEFT SHIFT is Present. MCH (RBC) [Entitic mass] 29.0 pg 27.0-32.0 [facility] Work Phone: Nucleated RBC/100 WBC (Bld) [Ratio] 0 % 0-5 [facility] Work Phone: MCHC Auto (RBC) [Mass/Vol]on 02-21-2022 MCHC (RBC) [Mass/Vol] 32.3 g/dL 32-36 [facility] Work Phone: No Panel Informationon 02-21 Estimated GFR (MDRD) Amer 65 mL/min >60 [facility] Work Phone: Comment on above: GFR Calc Estimated GFR (MDRD) Non-Af Amer 54 mL/min >60 [facility] Work Phone: Comment on above: Non- GFR Calc Thyroid Stimulating Hormone (TSH) 2.13 uIU/mL 0.358-3.74 [facility] Work Phone: Vitamin D 25-Hydroxy 30.2 ng/mL [facility] Work Phone: Comment on above: Vitamin D 25(OH) Sta tus Range Deficiency <20 ng/mL (50nmol/L) Insufficiency 20 - 30 ng/mL (50 - 75 nmol/L) Sufficiency 30 - 100 ng/mL (75 - 250 nmol/L) Toxicity >100 ng/mL (>250 nmol/L) Platelets bldon 02-21-2022 Platelets (Bld) [#/Vol] 252 10*3/uL 150-450 [facility] Work Phone: Serum or plasma albumin katie urement (mass/volume)on 02-21-2022 Albumin [Mass/Vol] 3.6 g/dL 3.2-5.0 [facility] Work Phone: Serum or plasma albumin/glob ulin mass ratioon 02-21-2022 Albumin/Globulin [Mass ratio] 1.1 {ratio} 0.9-2.4 [facility] Work Phone: Serum or plasma calcium katie urement (mass/volume)on 02-21-2022 Calcium [Mass/Vol] 9.4 mg/dL 8.5-10.1 [facility] Work Phone: Serum or plasma creatinine m easurement (mass/volume)on 02-21-2022 Creatinine [Mass/Vol] 1.04 mg/dL 0.55-1.02 [facility] Work Phone: Comment on above: The validity of the calculated GFR & GFRAA in patients over 70 years has not been determined. Clinical correlation is essential. Serum or plasma urea nitroge n measurement (mass/volume)on 02-21-2022 Urea nitrogen [Mass/Vol] 20 mg/dL 7-18 [facility] Work Phone: Thin prep Papanicolaou smear with manual screeningon 02-21-2022 Thin prep Papanicolaou smear with manual screening 11 U/L 15-37 [facility] Work Phone: Thin prep Papanicolaou smear with manual screening 4 5-15 [facility] Work Phone: Vital Signs Date Time Vital Sign Value Performing Clinician Eaglei boubacar 02-20-2023 09:24-0400 Body height 165.[address] Darryl Phipps Work Phone: [facility] 02-20-2023 09:24-0400 Body mass index (BMI) [Ratio] 23.6 kg/m2 Dr. Darryl Phipps Work Phone: [facility] 02-20-2023 09:24-0400 Body weight 64.[address] Darryl Phipps Work Phone: [facility] Encounters Encounter Date Encounter Type Care Provider Facility Start: 09-02-2024 End: 09-02-2024 ambulatory [facility] Jared Facility:[facility] Start: 04-26-2024 End: 04-26-2024 ambulatory Darryl Chi Jared Facility:[facility] Start: 04-24-2024 End: 04-24-2024 ambulatory [facility] Jared Facility:[facility] Start: 04-17-2024 End: 04-17-2024 ambulatory [facility] Jared Facility:[facility] Start: 03-25-2024 End: 03-25-2024 ambulatory [facility] Facility:[facility] Start: 02-28-2024 End: 02-28-2024 ambulatory [facility] Facility:[facility] Start: 08-29-2023 End: 08-29-2023 ambulatory [facility] Work Phone: Start: 08-29-2023 End: 08-29-2023 Patient encounter procedure [facility], Phy Office 3rd Flr Start: 02-20-2023 End: 02-20-[address] Darryl Phipps Work Phone: [facility] Start: 02-14-2023 End: 02-14-[address] Darryl Phipps Work Phone: [facility] Work Phone: Start: 02-14-2023 End: 02-14-[address] Darryl Phipps Work Phone: [facility] Start: 09-28-2022 End: 09-28-2022 ambulatory [facility] Work Phone: Start: 09-28-2022 End: 09-28-2022 Patient encounter procedure [facility] Start: 08-22-2022 End: 08-22-2022 ambulatory [facility] Work Phone: Start: 08-22-2022 End: 08-22-2022 Patient encounter procedure [facility] Phy Office 3rd Flr Start: 02-21-2022 End: 02-21-2022 Patient encounter procedure [facility] Office 3rd Flr Payers Date Payer Category Payer Self-pay [id number] 2023 Private Health Insurance 101 [id number] 2006 Unknown [id number] 2003 Medicare [id number] Unknown [id number] 2.16.8 [id number] Unknown [id number] 2.16.8 [id number] Unknown [id number] 2.16.8 [id number] Unknown [id number] 2.16.8 [id number] Unknown [id number] 2.16.8 [id number] Unknown [id number] 2.16.8 [id number] Unknown [id number] 2.16.8 [id number] Social History Date Type Detail Facility Start: 06-25-2021 End: 03-27-2023 Tobacco smoking status ALIS Unknown if ever smoked [facility] Start: 1940 Sex Assigned At Female [facility] Evaluation note Note Date & Type Note Facility Evaluation note No assessment information availa ble [facility] Work Phone: Evaluation note Note Date & Type Note Facility Evaluation note Diagnosis Onset Date Right carpal tunnel syndrome acute [facility] Work Phone: Advance Directives No Advanced Directives Records Found Advance Directive Response Recorded Date/ Time Living Will No June 25 3:01pm Power of Financial Reporting Manager No June 25, 2021 3:01pm Advance Directive Response Recorded Date/ Time Living Will No June 25 2:01pm Power of Financial Reporting Manager No June 25, 2021 2:01pm Advance Directive Response Recorded Date/ Time Living Will Yes February 28, 2023 12:19pm Power of Financial Reporting Manager Yes February 28 12:19pm Chief Complaint and Reason for Visit Chief Complaint RIGHT UPPER EXT CTS Chief Complaint Essential (primary) hypertension RIGHT HAND Reason for Visit Right carpal tunnel syndrome Summary Purpose Family History No Family History Records Found Additional Source Comments Goals (unrecognized section and content) Goals may be documented in a n alternate sectionGoals may be documented in an alternate sectionGoals may be documented in an alternate sectionGoals may be documented in an alternate sectionGoals may be documented in an alternate section Care Teams (unrecognized sec tion and content) Team Status: Active Member Role Status Dates Dr. Darryl Phipps MD Family Provider Active Dr. Darryl Phipps MD Primary Care Provider Active Team Status: Inactive Member Role Status Dates Dr. Darryl Phipps MD Primary Care Provider, Attending Provider Active Team Status: Inactive Member Role Status Dates Dr. Darryl Phipps MD Primary Care Provider, Referring Provider Active Bismark Guerrero MD Attending Provider Active Team Status: Inactive Member Role Status Dates Dr. Darryl Phipps MD Primary Care Provi deniz, Attending Provider, Referring Provider Active INFORMATION SOURCE (unrecogn ized section and content) DATE CREATED AUTHOR 10/05/2024 [facility] FOR RECORDS PERTAINING TO PATIENTS WHO ARE OR HAVE BEEN ENROLLED IN A CHEMICAL DEPENDENCY/SUBSTANCEABUSE PROGRAM, SOME INFORMATION MAY BE OMITTED. This clinical summary was aggregated from multiple sources. Caution should be exercised in using it in the provision of clinical care. This summary normalizes information from multiple sources, and as a consequence, information in this document may materially change the coding, format and clinical context of patient data. In addition, data may be omitted in some cases. CLINICAL DECISIONS SHOULD BE BASED ON THE PRIMARY CLINICAL RECORDS. [facility] [employer] [facility]. provides no warranty or guarantee of the accuracy or completeness of information in this document.
== END | disposition home or self-care (01) ==
LOC: LAB 10:47
PROVIDERS: PCP Family Medicine Geriatric Medicine; Referring Provider Family Medicine Geriatric Medicine; Visit Provider Family Medicine Geriatric Medicine
DX: I10 Essential (primary) hypertension (principal)
CPT/HCPCS: 36415; 80053; 82306; 84443; 85025

== ENCOUNTER → 2025-09-08 | Outpatient (CLI) | payer MEDICARE, SELFPAY ==
[2025-09-08 10:35] LABS: Hematocrit 39.5 % (37-47); Hemoglobin 13.5 g/dL (12.0-15.0); Immature Granulocytes Count 0.040 X10^3/uL (0.0-0.0); Mean Corp Hgb Conc 34.2 g/dL (32-36); Mean Corpuscular Volume 90.0 fL (81-99); Mean Platelet Vol. 9.4 fl (6.2-12.0); NRBC Flagged by Analyzer 0 % (0-5); Platelet Count 276 K/mm3 (150-450); RBC Distribution Width CV 13.9 % (11.6-14.6); RBC Distribution Width SD 45.8 fl (35.1-43.9); Red Blood Count 4.39 M/mm3 (4.2-5.4); White Blood Count 6.3 K/mm3 (4.4-11.0)
[2025-09-08 11:09] LABS: AST(SGOT) 16 U/L (<=31); Alanine Aminotransfer ALT/SGPT 9 U/L (<=34); Albumin, Serum 4.6 g/dL (3.4-4.8); Alkaline Phosphatase 79 U/L (35-104); Anion Gap 12 (7-18); BUN 18 mg/dL (4-19); BUN/Creat Ratio 21.5 RATIO (10-20); Calcium,Total 9.8 mg/dL (7.6-11.0); Carbon Dioxide 22.7 mmol/L (20.0-29.0); Chloride 103 mmol/L (96-106); Globulin 2.5 g/dL (2.2-4.2); Glucose 106 mg/dL (70-99); Potassium 4.3 mmol/L (3.5-5.1); Vitamin D,25 Hydroxy 51.2 ng/mL (30-100)
[2025-09-08 18:19] LABS: Xtra Tube EP Lab EXTRA TUBE
== END | disposition home or self-care (01) ==
LOC: POLAB3 10:19
PROVIDERS: PCP Family Medicine Geriatric Medicine; Visit Provider Family Medicine Geriatric Medicine
DX: E03.9 Hypothyroidism, unspecified (principal); E55.9 Vitamin D deficiency, unspecified; I10 Essential (primary) hypertension
CPT/HCPCS: 36415; 80053; 82306; 84443; 85025